=== PATIENT | male | born 1945 ===

== ENCOUNTER 2021-12-21 09:47 | Inpatient (IN) | payer MEDICARE ==
[~2021-12-21] VITALS: Ht 177.8 cm; Wt 62.8 kg
[2021-12-21 10:05] LABS: Calcium, Ionized (POC) 1.28 mmol/L (1.10-1.46); Chloride (POC) 104 mmol/L (98-108); Creatinine (POC) 0.9 mg/dL (0.6-1.0); Glucose (ISTAT POC) 118 mg/dL (70-99); Hemoglobin (POC) 15.3 g/dL (12.0-16.0); Sodium (POC) 137 mmol/L (135-148); Total CO2 (POC) 26 mmol/L (21-32)
[2021-12-21 10:16] LABS: BASOPHILS ABSOLUTE AUTO 0.11 K/mm3 (0.00-0.23); BASOPHILS PERCENT AUTO 1 % (0-2); EOSINOPHILS PERCENT AUTO 0 % (0-6); Hematocrit 44.4 % (33.0-51.0); Hemoglobin 14.5 g/dL (11.5-16.0); IMMATURE GRAN ABSOLUTE AUTO 0.08 K/mm3 (0.00-0.10); IMMATURE GRAN PERCENT AUTO 0 % (0-1); LYMPHOCYTES ABSOLUTE AUTO 0.44 K/mm3 (0.84-5.20); LYMPHOCYTES PERCENT AUTO 2 % (21-46); MONOCYTES ABSOLUTE AUTO 1.54 K/mm3 (0.16-1.47); MONOCYTES PERCENT AUTO 8 % (4-13); Mean Corpuscular HGB 29.8 pg (26.0-34.0); Mean Corpuscular HGB Conc 32.7 g/dL (31.5-36.5); Mean Corpuscular Volume 91 fL (80-100); Mean Platelet Volume 10.2 fL (9.1-12.4); NEUTROPHILS ABSOLUTE AUTO 16.76 K/mm3 (1.96-9.15); NEUTROPHILS PERCENT AUTO 89 % (41-73); Platelet Count 340 K/mm3 (150-400); RDW Coefficient Variation 16.1 % (11.7-14.2); RDW Standard Deviation 54.1 fL (35.1-46.3); Red Blood Cell Count 4.87 M/mm3 (3.80-5.20); White Blood Cell Count 18.93 K/mm3 (4.00-11.30)
[2021-12-21 10:48] LABS: Ethanol (Alcohol), Blood, Med <3 mg/dL
[2021-12-21 10:49] LABS: Alanine Aminotransfer (ALT/SGP 50 U/L (12-78); Albumin, Blood 3.8 g/dL (3.4-5.0); Alk Phos 109 U/L (50-136); Anion Gap 12 mmol/L (6-16); Aspartate Aminotrans (AST/SGOT 48 U/L (12-37); Bilirubin, Total 1.3 mg/dL (0.1-1.0); Blood Urea Nitrogen 26 mg/dL (8-24); Bun/Creatinine Ratio 33.2 (12.0-20.0); CO2, Blood 24 mmol/L (21-32); Calcium, Blood 10.4 mg/dL (8.5-10.1); Chloride, Blood 103 mmol/L (98-108); Creatinine, Blood 0.78 mg/dL (0.40-1.00); Globulin, Blood 3.9 g/dL (2.2-4.0); Glomerular Filtration Rate >60 (60-); Glucose, Blood 120 mg/dL (70-99); Potassium, Blood 4.9 mmol/L (3.5-5.5); Sodium, Blood 139 mmol/L (136-145); Total Protein, Blood 7.7 g/dL (6.4-8.2)
[2021-12-21 11:11] LABS: International Normalized Ratio 1.04; Prothrombin Time Results 10.9 Sec (9.7-11.5)
[2021-12-21 13:03] LABS: Source, Urine Straight Cath
[2021-12-21 13:14] LABS: Creatine Kinase MB 20.6 ng/mL (0.0-3.6); Creatine Kinase MB Index 2.4 (0.0-4.0)
[2021-12-21 13:18] LABS: Bilirubin, Urine Neg (Neg); Blood, Urine 5+ (Neg); Glucose Qualitative, Urine 2+ (Neg); Ketones, Urine 3+ (Neg); Leukocyte Esterase, Urine Neg (Neg); Nitrite, Urine Neg (Neg); Protein, Urine 2+ (Neg); Specific Gravity, Urine 1.015 (1.003-1.022); Urobilinogen, Urine NORM (Normal)
[2021-12-21 13:33] LABS: Appearance, Urine Clear (Clear); Color, Urine Pale Yellow (P-Yellow)
[2021-12-21 13:34] LABS: Bacteria Few /hpf; Squamous Epithelial Cells Few /hpf (Few); White Blood Cells, Urine 0-2 /hpf (0-5)
[2021-12-21 16:47] LABS: PCO2 Arterial 46.1 mmHg (35-45); PO2 Arterial 407 mmHg (80-100)
[2021-12-21 17:14] LABS: U Amphetamine Screen Not Detected; U Barbituate Screen Not Detected; U Benzodiazapine Screen Not Detected; U Buprenorphine Screen Not Detected; U Cannabinoids Screen DETECTED; U Cocaine Screen Not Detected; U Methadone Screen Not Detected; U Methamphetamine Screen Not Detected; U Opiates Screen DETECTED; U Oxycodone Screen Not Detected; U Phencyclidine Screen Not Detected; U Propoxyphene Screen Not Detected
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
--- NOTE | 2021-12-21 19:15 | NUR ---
ASSUMPTION OF CARE PT IS INTUBATED WITH VENT SETTINGS AC/VC+ 15/400/5/40%. PT HAS MODERATE AMOUNTS OF DARK BROWN/RED SECRETIONS FROM ETT, OGT, AND ORAL CAVITY. PT RECEIVING PROPOFOL 30MCG/KG/MIN AND NS 125/HR. KEPPRA STARTED BY DAY SHIFT RN. PUPILS ARE 3MM AND NONREACTIVE. BILAT SCLERA VERY EDEMATOUS. PT RESPONDS TO NAILBED PRESSURE WITH DECORTICATE POSTURING. TOES POINT UPWARD WITH BABINSKI REFLEX. HR 150S AND DECREASES TO 80S-90S. SBP 130S-150S. BRAUN DRAINING PALE YELLOW/CLEAR URINE TO GRAVITY. SEE SHIFT ASSESSMENT.
[2021-12-21 23:29] LABS: Magnesium, Blood 1.7 mg/dL (1.6-2.4)
[2021-12-21 23:31] LABS: Troponin I 1.6 ng/mL (0.000-0.040)
[2021-12-22] MEDS ORDERED: NORVASC5 MG PO (04:57)
[2021-12-22] MEDS ORDERED: ASPI81CH PO (05:00)
[2021-12-22] MEDS ORDERED: ALEN70 PO (05:00)
[2021-12-22] MEDS ORDERED: Lipitor20 MG PO (05:02)
[2021-12-22] MEDS ORDERED: LATA.005SO BOTHEYES (05:04)
--- NOTE | 2021-12-22 06:23 | NUR ---
SHIFT SUMMARY PT REMAINS INTUBATED WITH VENT SETTINGS AC/VC+ 15/400/5/30%. PT RECEIVING PROPOFOL 30MCG/KG/MIN. NGT REMAINS CONNECTED TO LOW INT SUCTION WITH SMALL AMOUNTS OF THICK RED DRAINAGE. ETT SECRETIONS REMAIN THICK/RED BUT HAVE DECREASED IN AMOUNT THROUGHOUT SHIFT. BRAUN REMAINS IN PLACE DRAINING PALE YELLOW/CLEAR URINE TO GRAVITY. SHIFT OUTPUT OF 900ML. RECORDS RECEIVED FROM [facility] REGARD[facility] H[facility]. [facility] STATES THEY [facility] NOT HAVE A POLST OR ADVANCED DIRECTIVE ON FILE. PER HISTORY, PT HAS TYPE 2 DIABETES. CBG CHECKED THIS AM, GLUCOSE 62. CALL PLACED TO DR PEREZ, RECEIVED ORDER FOR 1/2AMP D50 AND CHANGE FLUIDS TO D5 1/2NS AT 50ML/HR. AM LABS TO BE DRAWN AT 0700 ALONG WITH TROPONIN. CHEST XRAY DONE, ECHO TO BE DONE THIS AM. PT'S FACE REMAINS VERY SWOLLEN AND BRUISED. R SCLERA SWOLLEN AND YELLOW, L SCLERA VERY SWOLLEN AND RED. PUPILS ARE EQUAL, ROUND AND REACTIVE. HR HAS BEEN IN 80S. ONCE THIS SHIFT WITH REPOSITIONING PT'S HR INCREASED TO 150S-160S THEN DECREASED BACK TO 80S-90S. SBP 120S-140S. WILL REPORT TO ONCOMING RN.
[2021-12-22 07:23] LABS: Hematocrit 36.7 % (37.0-53.0); Hemoglobin 12.1 g/dL (13.5-17.5)
--- NOTE | 2021-12-22 07:30 | NUR ---
PT REMAINS INTUBATED. GIVEN SEDATION VACATION X 15 MIN. PT REMAINS UNRESPONSIVE. DECORTICATE POSTURING TO UPPER EXTREMITIES WITH NOXIOUS STIMULI. NO MOVEMENT OF LOWER EXTREMITIES NOTED. RR 30'S AND PT BEGAN COUGHING-PROPOFOL DRIP RESUMED @ 30 MCG/KG/MIN. BOTH EYES ARE BLACK AND SWOLLEN. SUTURES UNDER LEFT EYE AND TO UPPER LIP ARE C/D/I. MILD SCLERAL EDEMA TO RIGHT EYE, BUT PROFOUND SCLERAL EDEMA TO LEFT EYE. PUPILS ARE 3 MM AND SLUGGISH.ECG SHOWS SR. SBP 120-130'S. RIGHT LOWER EXTREMITY WITH 2+ EDEMA. FAINT DP/PT PULSES. BOTH LOWER EXTREMITIES ARE PINK AND WARM RIGHT GREAT TOE STILL BRUISED. LUNGS COARSE TO UPPER LOBES. ETT TO VENT"AC/VC+15, RR 20'S, TV400, PEEP 5, FIO2 30%-SATS>90%. ETT SUCTION PRODUCTIVE OF MODERATE AMOUNT OF THICK, OLD BLOODY SECRETIONS. NGT TO LIS WITH SCANT BROWN/RED DRAINAGE. NO ABDOMINAL DISTRESS NOTED. BRAUN TO BSD WITH SMALL AMOUNT OF YELLOW URINE TO BSD. RIGHT HIP WITH FOAM DRESSING THAT IS C/D/I. COCCYX/BUTTOCKS WITH MEPILEX/FOAM DRESSING TO PREVENT SKIN BREAKDOWN-C/D/I.
[2021-12-22 07:59] LABS: Alanine Aminotransfer (ALT/SGP 45 U/L (12-78); Albumin, Blood 2.4 g/dL (3.4-5.0); Albumin/Globulin Ratio 0.8 (0.8-1.8); Alk Phos 62 U/L (50-136); Anion Gap 7 mmol/L (6-16); Aspartate Aminotrans (AST/SGOT 79 U/L (12-37); Bilirubin, Total 0.8 mg/dL (0.1-1.0); Blood Urea Nitrogen 25 mg/dL (8-24); Bun/Creatinine Ratio 25.7 (12.0-20.0); CO2, Blood 25 mmol/L (21-32); CPK Creatine Kinase 1682 U/L (39-308); Calcium, Blood 8.5 mg/dL (8.5-10.1); Chloride, Blood 109 mmol/L (98-108); Creatinine, Blood 0.97 mg/dL (0.60-1.20); Globulin, Blood 3.2 g/dL (2.2-4.0); Glomerular Filtration Rate >60 (60-); Glucose, Blood 118 mg/dL (70-99); Potassium, Blood 4.2 mmol/L (3.5-5.5); Sodium, Blood 141 mmol/L (136-145)
[2021-12-22 08:03] LABS: Total Protein, Blood 5.6 g/dL (6.4-8.2)
--- NOTE | 2021-12-22 08:30 | NUR ---
DR. MACIAS AND HERE TO SEE PT. SEDATION ON STANDBY. PLAN FOR CT OF HEAD LATER TODAY.
--- NOTE | 2021-12-22 09:31 | NUR ---
RIGHT PUPIL 2 MM AND FIXED. NO SEDATION X 1 HOUR. PT WITH DECORTICATE POSTURING TO LEFT UPPER EXTREMITY MORE THAN THE RIGHT. NO CORNEAL REFLEX, NO GAG. +BABINSKI. DR. MACIAS NOTIFIED.
--- NOTE | 2021-12-22 11:30 | NUR ---
PROPOFOL HAS BEEN OFF SINCE 829. PT STILL NOT OPENING EYES OR FOLLOWING COMMANDS. PUPILS 2 MM AND SLUGGISH. DECORTICATE POSTURING NOTED TO LEFT UPPER EXTREMITY WITH PAINFUL STIMULI. MINIMAL GROSS MOVEMENT NOTED TO RIGHT UPPER EXTREMITY WITH PAINFUL STIMULI. NO MOVEMENT OF LOWER EXTREMITIES NOTED. +BABINSKI. VS WDL. SATS>90% ON FIO2 30%. ETT SUCTION PRODUCTIVE OF MODERATE AMOUNT OF THICK, OLD BLOODY SECRETIONS. PT SISTER THEO NOTIFIED OF PT ADMISSION(PT NEXT OF KIN.)
--- NOTE | 2021-12-22 14:30 | NUR ---
RIGHT FOREARM IV NOT PATENT-DC'D WITH CATHETER INTACT. NEW #18 G 10 CM EXTENEDED DWELL CATHETER PLACED. PT GRIMACING AND HR 150'S DURING PROCEDURE. MED WITH FENTANY 50 MCG IVP X 1-SEE EMAR. HR RETURNED TO 80-90'S. DR. MACIAS AWARE.
--- NOTE | 2021-12-22 16:00 | NUR ---
PT APPEARS TO GRIMACE WITH NOXIOUS STIMULI/ORAL CARE. HR 150'S WITH ETT SUCTIONING. PT TURNED HIS HEAD TOWARD THE VENTILATOR WITH SUCTIONING. PT REMAINS OFF SEDATION.STILL NOT FOLLOWING COMMANDS. TEMP 99.1. LUNGS COARSE TO UPPER LOBES. VENT CHANGED TO SPONTANEOUS MODE WITH PS 10/5, FIO2 30% RR 14-SATS>90% NO NOTED RESPIRATORY DISTRESS. ETT RETAPED THE ETT KINKING OFF/POSITIONAL-PER MAYUR RT.PT TO REMAIN ON SPONTANEOUS TOLERATED. OGTF VITAL HIGH PROTEIN INITIATED @ 25 CC/HR. BRAUN WITH MODERATE AMOUNT OF DARK, YELLOW URINE TO BSD. DR. LIND IN TO SEE PT BRIEFLY-UPDATED TO CURRENT VS AND STATUS. ORTHO TO FOLLOW PT FROM [facility] UNTIL HE IMPROVES NEUROLOGICALLY.
--- NOTE | 2021-12-22 18:40 | NUR ---
NO ACUTE NEURO CHANGES. PT HAS REMAINED OFF OF SEDATION THROUGH OUT THE DAY. PT STILL UNRESPONSIVE. PT GRIMACES TO NOXIOUS STIMULI AND HAS SOME GROSS MOVEMENT OF UPPER EXTREMITIES. NO MOVEMENT OF LOWER EXTREMITIES. PT REMAINS ON SPONTANEOUS MODE OF VENTILATION WITH PS 10-SATS>90% PT SISTER THEO UPDATED TO CURRENT STATUS AND PLAN OF CARE.
--- NOTE | 2021-12-22 19:00 | NUR ---
HR 150'S. PT OPENED RIGHT EYE TO VOICE AND SEEMED TO BE TRACKING. MED WITH FENTANYL 50 MCG IVP FOR PAIN. VENT CHANGED TO AC/VC+ 15, 450, PEEP 5,FIO2 30%-SATS>90% DESPITE MED WITH FENTANYL, PT STILL GRIMACING AND TACHYCARDIC-DR. AMCIAS PAGED. PROPOFOL DRIP RESUMED @ 30 MCG/KG/MIN. REPORT GIVEN TO JOHNATHAN AMBROCIO.
--- NOTE | 2021-12-22 19:15 | NUR ---
ASSUMPTION OF CARE PT REMAINS INTUBATED. PER REPORT, PT WAS ON SPONTANEOUS THROUGHOUT DAY BUT SWITCHED BACK TO AC/VC+ AT APPROX 1845 WITH SETTINGS AC/VC+ 15/450/5/30%. PROPOFOL WAS RESTARTED AT THE SAME TIME AND IS INFUSING AT 30MCG/KG/MIN. D5 1/2NS INFUSING AT 50ML/HR. VITAL HP INFUSING VIA OGT AT 25ML/HR WITH 30ML WATER FLUSH Q4, ZERO RESIDUALS AT THIS TIME AND BOWEL TONES ACTIVE. HR WAS IN 140S-150S WITH SBP 130S-150S, NOW HR IS 80S. BRAUN REMAINS IN PLACE DRAINING YELLOW URINE. PLAN FOR HEAD CT IN AM. SEE SHIFT ASSESSMENT.
[2021-12-23 03:29] LABS: BASOPHILS ABSOLUTE AUTO 0.05 K/mm3 (0.00-0.23); BASOPHILS PERCENT AUTO 0 % (0-2); EOSINOPHILS ABSOLUTE AUTO 0.03 K/mm3 (0.00-0.68); EOSINOPHILS PERCENT AUTO 0 % (0-6); Hematocrit 33.8 % (37.0-53.0); Hemoglobin 11.1 g/dL (13.5-17.5); IMMATURE GRAN ABSOLUTE AUTO 0.07 K/mm3 (0.00-0.10); IMMATURE GRAN PERCENT AUTO 1 % (0-1); LYMPHOCYTES ABSOLUTE AUTO 0.51 K/mm3 (0.84-5.20); LYMPHOCYTES PERCENT AUTO 4 % (21-46); MONOCYTES ABSOLUTE AUTO 0.69 K/mm3 (0.16-1.47); MONOCYTES PERCENT AUTO 5 % (4-13); Mean Corpuscular HGB 29.8 pg (26.0-34.0); Mean Corpuscular HGB Conc 32.8 g/dL (31.5-36.5); Mean Corpuscular Volume 91 fL (80-100); Mean Platelet Volume 10.6 fL (9.1-12.4); NEUTROPHILS ABSOLUTE AUTO 13.21 K/mm3 (1.96-9.15); NEUTROPHILS PERCENT AUTO 91 % (41-73); Platelet Count 229 K/mm3 (150-400); RDW Coefficient Variation 16.4 % (11.7-14.2); RDW Standard Deviation 54.8 fL (35.1-46.3); Red Blood Cell Count 3.73 M/mm3 (4.30-5.90); White Blood Cell Count 14.56 K/mm3 (4.00-11.30)
--- NOTE | 2021-12-23 03:30 | NUR ---
SPONTANEOUS PROPOFOL ON STANDBY AT 031. PT SWITCHED FROM AC/VC+ TO SPONTANEOUS AT 0330 BY RT. RR 13-18, PEEP 5, FIO2 30%, AND TIDAL VOLUMES BETWEEN 430S-750S. PT TOLERATING WELL AT THIS TIME, NO SIGNS OF DISTRESS.
[2021-12-23 04:22] LABS: Alanine Aminotransfer (ALT/SGP 43 U/L (12-78); Albumin, Blood 2.2 g/dL (3.4-5.0); Albumin/Globulin Ratio 0.7 (0.8-1.8); Alk Phos 62 U/L (50-136); Anion Gap 3 mmol/L (6-16); Aspartate Aminotrans (AST/SGOT 53 U/L (12-37); Bilirubin, Total 0.6 mg/dL (0.1-1.0); Blood Urea Nitrogen 25 mg/dL (8-24); Bun/Creatinine Ratio 29.7 (12.0-20.0); CO2, Blood 27 mmol/L (21-32); Calcium, Blood 8.7 mg/dL (8.5-10.1); Chloride, Blood 111 mmol/L (98-108); Creatinine, Blood 0.84 mg/dL (0.60-1.20); Globulin, Blood 3.3 g/dL (2.2-4.0); Glomerular Filtration Rate >60 (60-); Glucose, Blood 187 mg/dL (70-99); Magnesium, Blood 2.2 mg/dL (1.6-2.4); Phosphorus, Blood 2.1 mg/dL (2.5-4.9); Potassium, Blood 4.2 mmol/L (3.5-5.5); Sodium, Blood 141 mmol/L (136-145); Total Protein, Blood 5.5 g/dL (6.4-8.2)
[2021-12-23 04:25] LABS: Troponin I 0.741 ng/mL (0.000-0.040)
--- NOTE | 2021-12-23 05:43 | NUR ---
SHIFT SUMMARY PT REMAINS INTUBATED WITH VENT SETTINGS SPONTANEOUS, PEEP 5, FIO2 30%. PT HAS BEEN ON SPONTANEOUS SINCE 329. PT TOLERATING WELL, RR 11-18 WITH TIDAL VOLUMES 400S-700S. PROPOFOL HAS BEEN OFF SINCE 314. PT CURRENTLY RECEIVING D5 1/2NS AT 50ML/HR. PT OPENED R EYE DURING BEDBATH AND DURING REPOSITIONING AT 0530. PT DID NOT TRACK MOVEMENTS OR FOLLOW COMMANDS. VHP TUBE FEEDING INFUSING AT GOAL RATE SINCE MIDNIGHT WITH MINIMAL RESIDUALS. BRAUN REMAINS IN PLACE DRAINING DARK YELLOW URINE TO GRAVITY. SHIFT OUTPUT OF 650ML. PT HAD THREE EPISODES OF RAPID HEARTRATE THAT SUDDENLY INCREASES TO 140S-150S LASTS A SHORT PERIOD AND THEN SLOWS BACK TO 80S-90S. THIS OCCURRED AT THE BEGINNING OF SHIFT, APPROX 0200, AND 0520. PT TENSE AND/OR GRIMACING DURING THESE EPISODES, MEDICATED WITH FENTANYL PER EMAR. SBP REMAINS 130S-160S. PLAN FOR HEAD CT THIS AM. WILL REPORT TO ONCOMING RN.
--- NOTE | 2021-12-23 07:15 | NUR ---
Assumed care of pt at 0700. Bedside report received from Doreen MANN. Pt on ventilator, via 7.5 cm ETT, spontaneous mode PS 5/5 and 30% FiO2. RR 18-22. SpO2 90% or greater. Tidal volumes 400-450 mL. Pt is not receiving sedation. Does not open eyes. Attempts to withdraw from painful stimulus. Cough and gag intact. PERRL, 3 mm. HR alternates between SVT rate 140-145 and SR with PACs 65-85. BP stable. Pt has recently received one dose of labetalol. Will continue to closely monitor.
--- NOTE | 2021-12-23 08:02 | NUR ---
Dr Gomes in to see patient. Plan to give 2.5 mg metoprolol IV push x 2 for heart rate
--- NOTE | 2021-12-23 11:32 | NUR ---
Discussed blood sugar of [address] Gomes. Plan to stop D5 1/2 NS.
--- NOTE | 2021-12-23 14:49 | NUR ---
Pt to imaging and back for head CT. Pt tolerated well. Remained on spontaneous mode. Pt's HR more stable. SVT stopped when pt was given pain meds. He has only had one episode of SVT since last dose of fentanyl and it was while he was being repositioned.
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
--- NOTE | 2021-12-23 21:15 | NUR ---
ASSUMED CARE: PT WITH SAS OF 3 WITH NO SEDATION ALL DAY. GIRISH AT 4MM BILAT. PT GRIMACES TO PAIN WHEN NAIL BEDS PUSHED ON. TEMP 101.6; TYLENOL GIVEN. LS CLEAR DIMINISHED BASED WITH INSPIRATORY WHEEZE ON CRISTINO. ETT 7.5 24 @ LIP WITH VENT SETTINGS SPONTANEOUS WITH PS5, PEEP 5 AND FIO2 30%. RR 20 AND PEAK PRESSURES 10. THINK FOAMY BEARDEN SECRETIONS SX'D. HEART SOUNDS S1 AND S2 AUSCULTATED BUT A LITTLE DISTANT WITH MONITOR SHOWING SR WITH HR 74. SKIN WITH MULTIPLE ECCHYMOTIC AREAS. BILAT ECCHYMOSIS AROUND EYES WITH LACERATION UNDER LEFT EYE WITH SUTURES IN PLACE. R HIP WITH DRESSING IN PLACE; ABRASION UNDER DRESSING AND WEEPING. PG 18G 10CM YULIYA AND FLUSHED. 20G LF WITH NS RUNNING AT 10CC/HR. ABD R/S WITH HYPER BT X4. TUBE FEDDING VITAL HP RUNNING AT 50CC/HR WITH 30CC FLUSH Q 4HRS. RESIDUALS 5CC AND REFED. BRAUN DRAINING DARK YELLOW URINE.
--- NOTE | 2021-12-24 | NUR ---
REASSES: COMPLETE BED BATH DONE AND LINENS CHANGED. DRESSING ON R HIP CHANGED. COCCYX DRESSING REMOVED AND WOUND ASSESS; NO CHANGES ROM PICTURE. TEMP 99.6.VSS
--- NOTE | 2021-12-24 01:28 | NUR ---
WENT IN TO TURN PT, HE WAS SLIGHTLY SQUIMMING IN THE BED. ASKED HIM TO OPEN HIS EYES AND HE DID. ASKED HIM TO SQUEEZE MY HANDS, AND HE DID. ASKED IF HE WAS IN PAIN, AND HE NODDED NO.
[2021-12-24 04:52] LABS: BASOPHILS ABSOLUTE AUTO 0.04 K/mm3 (0.00-0.23); BASOPHILS PERCENT AUTO 0 % (0-2); EOSINOPHILS ABSOLUTE AUTO 0.07 K/mm3 (0.00-0.68); EOSINOPHILS PERCENT AUTO 1 % (0-6); Hematocrit 34.2 % (37.0-53.0); IMMATURE GRAN ABSOLUTE AUTO 0.09 K/mm3 (0.00-0.10); IMMATURE GRAN PERCENT AUTO 1 % (0-1); LYMPHOCYTES ABSOLUTE AUTO 0.35 K/mm3 (0.84-5.20); LYMPHOCYTES PERCENT AUTO 3 % (21-46); MONOCYTES ABSOLUTE AUTO 0.63 K/mm3 (0.16-1.47); MONOCYTES PERCENT AUTO 6 % (4-13); Mean Corpuscular HGB 29.5 pg (26.0-34.0); Mean Corpuscular HGB Conc 32.2 g/dL (31.5-36.5); Mean Corpuscular Volume 92 fL (80-100); Mean Platelet Volume 10.9 fL (9.1-12.4); NEUTROPHILS ABSOLUTE AUTO 9.47 K/mm3 (1.96-9.15); NEUTROPHILS PERCENT AUTO 89 % (41-73); Platelet Count 207 K/mm3 (150-400); RDW Coefficient Variation 16.4 % (11.7-14.2); Red Blood Cell Count 3.73 M/mm3 (4.30-5.90); White Blood Cell Count 10.65 K/mm3 (4.00-11.30)
[2021-12-24 05:42] LABS: Alanine Aminotransfer (ALT/SGP 44 U/L (12-78); Albumin/Globulin Ratio 0.6 (0.8-1.8); Alk Phos 74 U/L (50-136); Anion Gap 5 mmol/L (6-16); Aspartate Aminotrans (AST/SGOT 34 U/L (12-37); Bilirubin, Total 0.6 mg/dL (0.1-1.0); Blood Urea Nitrogen 29 mg/dL (8-24); Bun/Creatinine Ratio 34.5 (12.0-20.0); CO2, Blood 26 mmol/L (21-32); Calcium, Blood 8.7 mg/dL (8.5-10.1); Chloride, Blood 110 mmol/L (98-108); Creatinine, Blood 0.84 mg/dL (0.60-1.20); Globulin, Blood 3.5 g/dL (2.2-4.0); Glomerular Filtration Rate >60 (60-); Glucose, Blood 171 mg/dL (70-99); Potassium, Blood 4.1 mmol/L (3.5-5.5); Sodium, Blood 141 mmol/L (136-145); Total Protein, Blood 5.5 g/dL (6.4-8.2)
--- NOTE | 2021-12-24 07:26 | NUR ---
TOOK OVER CARE OF PT AT 0700 12/24/21. PT ON VENTILATOR WITH SETTINGS OF SPONT PS 5/5 30%. HYPERTENSIVE AT THIS TIME WITH SYSTOLIC 170'S, PREVIOUS NURSE STATES PT HAD JUST RECIEVED ORAL CARE FROM RT AND WAS GIVEN AN ANTIHYPERTENSIVE. PT DOES NOT CURRENTLY HAVE ANY PRESSORS OR SEDATION RUNNING ON PUMPS. APPEARS TO BE MINIMALLY RESPONSIVE TO STIMULI.
--- NOTE | 2021-12-24 07:35 | NUR ---
TOOK OVER CARE OF PT AT 0700 12/24/21. PT ON VENTILATOR WITH SETTINGS OF SPONT PS 5/5 30%. HYPERTENSIVE AT THIS TIME WITH SYSTOLIC 170'S, PREVIOUS NURSE STATES PT HAD JUST RECIEVED SUCTIONING FROM RT AND WAS GIVEN AN ANTIHYPERTENSIVE. PT DOES NOT CURRENTLY HAVE ANY PRESSORS OR SEDATION RUNNING ON PUMPS. APPEARS TO BE MINIMALLY RESPONSIVE TO STIMULI.
--- NOTE | 2021-12-24 09:00 | NUR ---
DR. MACIAS NOTIFIED OF UNEQUAL PUPILS.
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
--- NOTE | 2021-12-24 18:12 | NUR ---
PT ON AC/VC RATE OF 15 450ML 5 OF PEEP 30% FiO2. 20 OF PROPOFOL. LEFT PUPIL STILL SMALLER THAN RIGHT AND SLUGGISH. STRONGER PAIN RESPONSES FROM RIGHT SIDE STILL.
[2021-12-25 04:05] LABS: Hematocrit 33.7 % (37.0-53.0); Hemoglobin 10.9 g/dL (13.5-17.5); Mean Corpuscular HGB 29.7 pg (26.0-34.0); Mean Corpuscular HGB Conc 32.3 g/dL (31.5-36.5); Mean Corpuscular Volume 92 fL (80-100); Mean Platelet Volume 11.2 fL (9.1-12.4); NRBC ABSOLUTE 0.02 K/mm3 (0.00-0.02); NRBC Auto 0.2 /100 WBC (0.0-0.2); Platelet Count 227 K/mm3 (150-400); RDW Coefficient Variation 16.6 % (11.7-14.2); RDW Standard Deviation 56.2 fL (35.1-46.3); Red Blood Cell Count 3.67 M/mm3 (4.30-5.90); White Blood Cell Count 9.14 K/mm3 (4.00-11.30)
[2021-12-25 04:23] LABS: Alanine Aminotransfer (ALT/SGP 37 U/L (12-78); Albumin, Blood 1.9 g/dL (3.4-5.0); Albumin/Globulin Ratio 0.6 (0.8-1.8); Alk Phos 71 U/L (50-136); Anion Gap 4 mmol/L (6-16); Aspartate Aminotrans (AST/SGOT 25 U/L (12-37); Bilirubin, Total 0.4 mg/dL (0.1-1.0); Blood Urea Nitrogen 31 mg/dL (8-24); Bun/Creatinine Ratio 36.4 (12.0-20.0); CO2, Blood 28 mmol/L (21-32); Calcium, Blood 9.3 mg/dL (8.5-10.1); Chloride, Blood 111 mmol/L (98-108); Creatinine, Blood 0.85 mg/dL (0.60-1.20); Globulin, Blood 3.3 g/dL (2.2-4.0); Glomerular Filtration Rate >60 (60-); Glucose, Blood 165 mg/dL (70-99); Phosphorus, Blood 2.5 mg/dL (2.5-4.9); Potassium, Blood 4.3 mmol/L (3.5-5.5); Sodium, Blood 143 mmol/L (136-145); Total Protein, Blood 5.2 g/dL (6.4-8.2)
[2021-12-25 04:32] LABS: BAND PERCENT MAN 16 % (0-8); BASOPHILS ABSOLUTE MAN 0.09 K/mm3 (0.00-0.23); BASOPHILS PERCENT MAN 1 % (0-2); EOSINOPHILS ABSOLUTE MAN 0.09 K/mm3 (0.00-0.68); EOSINOPHILS PERCENT MAN 1 % (0-6); LYMPHOCYTES ABSOLUTE MAN 0.45 K/mm3 (0.84-5.20); LYMPHOCYTES PERCENT MAN 5 % (21-46); MONOCYTES ABSOLUTE MAN 0.36 K/mm3 (0.16-1.47); MONOCYTES PERCENT MAN 4 % (4-13); NEUTROPHILS ABSOLUTE MAN 8.13 K/mm3 (1.96-9.15); SEG NEUTROPHILS PERCENT MAN 73 % (41-73); TOTAL CELLS COUNTED 100
--- NOTE | 2021-12-25 06:14 | NUR ---
NO SIGNIFICANT CHANGES OVERNIGHT. PT GRIMACES AND HAS INCREASED RR AND BP FOLLOWING REPOSITIONING, RESPONDS WELL TO PAIN MEDICATION. PUPILS 2MM, L SLOWER TO RESPOND TO LIGHT THAN THE R. OCC PRODUCTIVE COUGH, DRAWS ARMS IN WITH COUGHING AND PAIN. DRESSING ON R HIP REPLACED DUE TO WEEPING, NO CHANGE IN SACRAL REDNESS OR HEELS. WILL CONTINUE TO MONITOR AND REPORT TO ONCOMING SHIFT.
--- NOTE | 2021-12-25 07:21 | NUR ---
TOOK OVER CARE OF PT AT 0710 12/25/21. PT IS RESTING ON VENTILATOR SET ON AC/VC, RATE OF 15, 450ML, PEEP OF 5 AND 30% FiO2. REPORTING RN STATED HYPERTENSION ISSUES ONLY WHEN AGITATING PT, OTHERWISE STABLE AT THIS TIME.
--- NOTE | 2021-12-25 10:41 | NUR ---
PRN MILK OF MAG AND BISACODYL SUPPOSITORY GIVEN
--- NOTE | 2021-12-25 17:54 | NUR ---
PT HAVING REPEAT RUNS OF SVT. PROVIDER AT BEDSIDE. PRN'S PUSHED WITH NO RESULT. HR UP TO 170'S AT TIMES
--- NOTE | 2021-12-25 18:03 | NUR ---
SUMMARY PROPOFOL HAS BEEN OFF SINCE 0700, INTERMITTENT PRN FENTANYL GIVEN FOR PAIN CONTROL. NEURO: PTS PUPILS ARE BRISK AND EQUAL. ALL EXTREMETIES FOLLOWING COMMANDS WEAKLY. PT ABLE TO WIGGLE TOES AND SLIGHT MOVEMENT OF THUMBS. PT IS STRONGER ON THE RIGHT SIDE THAN THE LEFT. EYES OPEN MORE EASILY THROUGHOUT THE SHIFT AND PT BEGINNING TO NOD TO QUESTIONS. CARDIAC: INTERMITTENT EPISODES OF SVT, UP TO 174 BPM. PAC'S AND MULTIFOCAL PVC'S AFTER VAGAL MANEUVERS. ESMOLOL DRIP STARTED AT 50. RESPIRATORY; PT WAS BREATHING ABOVE THE VENT THROUGHOUT THE DAY. PT HAD COPIOUS THICK YELLOW SECRETIONS EVEN WITH Q2 ORAL CARE/SUCTIONING. SPUTUM SAMPLE SENT. PT PLACED ON ASSIST CONTROL 15/450/5/30%. THICK SINUS DRAINAGE NOTED. PT CONTINUED TO BE HYPERTENSIVE THROUGHOUT THE DAY. PO CCB'S AND BB'S ADDED TO REGIMEN ALONG WITH ALL AVAILABLE ANTIHYPERTENSIVE PRN IVP'S GIVEN. PAIN MANAGEMENT TRIED WELL. TMAX 100.5 ORAL
[2021-12-25 18:33] LABS: Anion Gap 5 mmol/L (6-16); Blood Urea Nitrogen 31 mg/dL (8-24); Bun/Creatinine Ratio 40.2 (12.0-20.0); CO2, Blood 27 mmol/L (21-32); Calcium, Blood 9.2 mg/dL (8.5-10.1); Chloride, Blood 110 mmol/L (98-108); Creatinine, Blood 0.77 mg/dL (0.60-1.20); Glomerular Filtration Rate >60 (60-); Glucose, Blood 188 mg/dL (70-99); Phosphorus, Blood 3.2 mg/dL (2.5-4.9); Potassium, Blood 4.4 mmol/L (3.5-5.5); Sodium, Blood 142 mmol/L (136-145)
--- NOTE | 2021-12-25 19:19 | NUR ---
Patient remains with elevated HR, currently 130s. BP stable. Esmolol now at 200 mcg/kg/min. Medicated with ativan due to concern for alcohol withdrawal. Discussed pt's response to esmolol and provider clarified to give evening dose of metoprolol and plan to manage pt's heart rate by medicating pain.
--- NOTE | 2021-12-25 20:00 | NUR ---
ASSUMED CARE. RESPONDS TO VERBAl STIMULI, ABLE TO OPEN EYES, ANSWER WITH TURNING HIS HEAD. BUT DOES NOT DRAG OUT MAN WHEN ASKED. DOES BITE DOWN ON SUCTION. LUNG SOUNDS CLEAR WITH FINE CRACKLES IN THE BASES. VENT: 15/450/5/30%. TOLERATING IT WELL. DR. LADD PRESENT R/T SVT, ST ON MONITOR. WILL HAVE NEW ORDERS. BRAUN CATH PATENT AND DRAINING. ESMOLOL CURRENTLY INFUSING. TF RUNNING AT 45CC/HR. WILL ASSESS AND PROVIDE TREATMENT PER ORDERS.
[2021-12-26 04:27] LABS: BASOPHILS ABSOLUTE AUTO 0.05 K/mm3 (0.00-0.23); BASOPHILS PERCENT AUTO 1 % (0-2); EOSINOPHILS PERCENT AUTO 1 % (0-6); Hematocrit 33.4 % (37.0-53.0); Hemoglobin 11.1 g/dL (13.5-17.5); IMMATURE GRAN ABSOLUTE AUTO 0.08 K/mm3 (0.00-0.10); IMMATURE GRAN PERCENT AUTO 1 % (0-1); LYMPHOCYTES ABSOLUTE AUTO 0.55 K/mm3 (0.84-5.20); LYMPHOCYTES PERCENT AUTO 6 % (21-46); MONOCYTES ABSOLUTE AUTO 0.77 K/mm3 (0.16-1.47); MONOCYTES PERCENT AUTO 8 % (4-13); Mean Corpuscular HGB 29.8 pg (26.0-34.0); Mean Corpuscular HGB Conc 33.2 g/dL (31.5-36.5); Mean Corpuscular Volume 90 fL (80-100); Mean Platelet Volume 10.9 fL (9.1-12.4); NEUTROPHILS ABSOLUTE AUTO 8.32 K/mm3 (1.96-9.15); NEUTROPHILS PERCENT AUTO 84 % (41-73); Platelet Count 239 K/mm3 (150-400); RDW Coefficient Variation 16.5 % (11.7-14.2); RDW Standard Deviation 54.2 fL (35.1-46.3); Red Blood Cell Count 3.72 M/mm3 (4.30-5.90); White Blood Cell Count 9.87 K/mm3 (4.00-11.30)
[2021-12-26 05:24] LABS: Albumin, Blood 1.7 g/dL (3.4-5.0); Anion Gap 5 mmol/L (6-16); Blood Urea Nitrogen 36 mg/dL (8-24); CO2, Blood 27 mmol/L (21-32); Chloride, Blood 111 mmol/L (98-108); Creatinine, Blood 0.84 mg/dL (0.60-1.20); Glomerular Filtration Rate >60 (60-); Glucose, Blood 221 mg/dL (70-99); Magnesium, Blood 1.9 mg/dL (1.6-2.4); Phosphorus, Blood 2.6 mg/dL (2.5-4.9); Potassium, Blood 4.4 mmol/L (3.5-5.5); Sodium, Blood 143 mmol/L (136-145)
--- NOTE | 2021-12-26 06:27 | NUR ---
SHIFT SUMMARY: INTUBATED. VENT SETTINGS NO CHANGE 15/450/5/30%. LS CLEAR WITH FINE CRACKLES IN THE BASES. SUCTION: THICK YELLOW SPUTUM. OPENS EYES TO VERBAL STIMULI, WILL SHAKE HEAD BACK AND FORTH, COUGHS. DID NOT ETCHER HAND FOR ME BUT WILL MOVE FINGERS SLIGHTLY. SVT/ST UP TO 140'S. CARDIZEM DRIP STARTED AT 5, WAS INCREASED TO 10 BUT IS NOW BACK AT 5, MAINTAINING 70'S. DOES TEND TO GO BACK TO ST WHEN SUCTIONING OR MOVING THE PATIENT BUT WILL RETURN TO NORMAL ON OWN. FEBRILE HIGHEST 99.9. NO BM THIS SHIFT. NO CHANGE TO SKIN, RIGHT HIP ABRASION OPEN TO AIR. DRESSINGS TO BILATERAL HEALS AND BOTTOM INTAKE. FENTANYL USED FOR PAIN MANAGMENT AND HR CONTROL. TROPONIN THIS AM ELEVATED 1.44.CHARGE INFORMED. EXPECTED ELEVATION DUE TO SVT YESTERDAY. WILL REPORT TO DAYSHIFT.
--- NOTE | 2021-12-26 08:47 | NUR ---
TOOK OVER CARE OF PT AT 0700 12/26/21. PT WAS ON VC/AC 5/450/5/30%. PT AWAKE AND RESPONDING TP COMMANDS ON ALL EXTREMETIES. WEAN TRIAL STARTED AT 0830 AND PATIENT PLACED ON PRESSURE SUPPORT 07/02.
--- NOTE | 2021-12-26 17:07 | NUR ---
SUMMARY PSYCH: PT IS LETHARGIC BUT INTERACTIVE WITH FLAT EFFECT. SKIN: RT HIP ABRASION HEALING, SKIN BUDS PRESENT, CURRENTLY WILBER WITH TRIPLE ABX OINTMENT APPLIED THROUGHOUT SHIT, SUTURES BELOW LEFT EYE AND ON UPPER LIPS ARE INTACT AND SKIN APPROXIMATED. GI/: PT HAS PIVOT 1.2 RUNNING AT 45ML/HR AND IS TOLERATING >5ML RESIDUALS. LAST BM WAS ON 12/25. UNRINE OUTPUT HAS BEEN 100ML/HR+. IF EXTUBATED TOMORROW, WILL BE UNABLE TO PLACE DOBHOFF FOR FEEDINGS AND MEDS D/T NASAL FX'S. RESPIRATORY: PT WAS PLACED ON A WEAN TRIAL TODAY TO ASSESS FOR POSSIBLE EXTUBATION IN THE MORNING. CONCERN FOR EXCESSIVE SECRETIONS- NIGHT RN TO MONITOR AND REPORT IN THE MORNING. SECRETIONS HAVE THINNED OUT AND LIGHTENED IN COLOR FROM THICK BEARDEN PREVIOUSLY. PT WAS SATTING 90-91% SO HE WAS PLACED ON 40% FiO2, PRESSURE SUPPORT 8/5. SPUTUM CULTURE FROM 12/25 SHOWED NO ORGANISM GROWTH. LUNGS CLEAR WITH DIMINISHED BASES. NEURO: PT OPENS EYES TO VOICE, ALTHOUGH INTERMITTENTLY SLOW TO RESPOND AND LETHARGIC. PT IS ABLE TO FOLLOW COMMANDS ON ALL EXTREMETIES, SLIGHTLY WEAKER ON LEFT BUT IMPROVING FROM YESTERDAY. PT WAS ABLE TO LIFT FORARMS AND LIFT THUMBS ON COMMAND TODAY, ALTHOUGH VERY BRIEF. PT RIGHT PUPIL WAS BRISK, WHILE THE RIGHT PUPIL WAS SLUGGISH. PROVIDER AWARE. CARDIAC: PT HAS BEEN ON CARDIZEN DRIP SINCE LAST NIGHT. CURRENTLY RUNNING AT 5. PT HAS ONE BRIEF EPISODE OF SVT UP TO 140'S BUT RESOLVED ON ITS OWN. PT CONTINUES TO BE INTERMITTENTLY HYPERTENSIVE, PRN VASOTEC AND HYDRALIZINE GIVEN. PT HAS ALSO BECOME HYPOTENSIVE WHILE TURNED HARD ONTO HIS RIGHT SIDE WITH A MAP IN TO 50'S AND DIASTOLIC PRESSURES IN THE 30'S. PT BP STABILIZED AFTER A FEW MINUTES WITH NO INTERVENTION. PT HAS BEEN BREATHING 25-30'S/MIN. HR IN THE 90'S, ETCO2 HAS BEEN RANGING 24-30, TMAX WAS 102.1 WELL. GROWTH. SINUS DRAINAGE ALSO NOTED.
--- NOTE | 2021-12-26 17:33 | NUR ---
SUMMARY PSYCH: PT IS LETHARGIC BUT INTERACTIVE WITH FLAT EFFECT. SKIN: RT HIP ABRASION HEALING, SKIN BUDS PRESENT, CURRENTLY WILBER WITH TRIPLE ABX OINTMENT APPLIED THROUGHOUT SHIFT, SUTURES BELOW LEFT EYE AND ON UPPER LIPS ARE INTACT AND SKIN APPROXIMATED. GI/: PT HAS PIVOT 1.2 RUNNING AT 45ML/HR AND IS TOLERATING >5ML RESIDUALS. LAST BM WAS ON 12/25. UNRINE OUTPUT HAS BEEN 100ML/HR+. IF EXTUBATED TOMORROW, WILL BE UNABLE TO PLACE DOBHOFF FOR FEEDINGS AND MEDS D/T NASAL FX'S. RESPIRATORY: PT WAS PLACED ON A WEAN TRIAL TODAY TO ASSESS FOR POSSIBLE EXTUBATION IN THE MORNING. CONCERN FOR EXCESSIVE SECRETIONS- NIGHT RN TO MONITOR AND REPORT IN THE MORNING. SECRETIONS HAVE THINNED OUT AND LIGHTENED IN COLOR FROM THICK BEARDEN PREVIOUSLY. PT WAS SATTING 90-91% SO HE WAS PLACED ON 40% FiO2, PRESSURE SUPPORT 8/. SPUTUM CULTURE FROM 12/25 SHOWED NO ORGANISM GROWTH. LUNGS CLEAR WITH DIMINISHED BASES. NEURO: PT OPENS EYES TO VOICE, ALTHOUGH INTERMITTENTLY SLOW TO RESPOND AND LETHARGIC. PT IS ABLE TO FOLLOW COMMANDS ON ALL EXTREMETIES, SLIGHTLY WEAKER ON LEFT BUT IMPROVING FROM YESTERDAY. PT WAS ABLE TO LIFT FORARMS AND LIFT THUMBS ON COMMAND TODAY, ALTHOUGH VERY BRIEF. PT RIGHT PUPIL WAS BRISK, WHILE THE LEFT PUPIL WAS SLUGGISH. PROVIDER AWARE. CARDIAC: PT HAS BEEN ON CARDIZEN DRIP SINCE LAST NIGHT. CURRENTLY RUNNING AT 5. PT HAS ONE BRIEF EPISODE OF SVT UP TO 140'S BUT RESOLVED ON ITS OWN. PT CONTINUES TO BE INTERMITTENTLY HYPERTENSIVE, PRN VASOTEC AND HYDRALIZINE GIVEN. PT HAS ALSO BECOME HYPOTENSIVE WHILE TURNED HARD ONTO HIS RIGHT SIDE WITH A MAP IN TO 50'S AND DIASTOLIC PRESSURES IN THE 30'S. PT BP STABILIZED AFTER A FEW MINUTES WITH NO INTERVENTION. PT HAS BEEN BREATHING 25-30'S/MIN. HR IN THE 90'S, ETCO2 HAS BEEN RANGING 24-30, TMAX WAS 102.1F WELL.
--- NOTE | 2021-12-26 18:13 | NUR ---
BLOOD AND URINE CULTURES DRAWN D/T TMAX OF 102.1F
[2021-12-26 18:38] LABS: Source, Urine Foley catheter
[2021-12-26 18:46] LABS: Bilirubin, Urine Neg (Neg); Blood, Urine 1+ (Neg); Glucose Qualitative, Urine 3+ (Neg); Ketones, Urine Neg (Neg); Leukocyte Esterase, Urine Neg (Neg); Nitrite, Urine Neg (Neg); Protein, Urine 2+ (Neg); Urobilinogen, Urine NORM (Normal)
[2021-12-26 18:55] LABS: Appearance, Urine Clear (Clear); Color, Urine Pale Yellow (P-Yellow)
[2021-12-26 18:56] LABS: Bacteria Few /hpf; Mucus Light (0-Heavy); Squamous Epithelial Cells Few /hpf (Few); White Blood Cells, Urine 0-2 /hpf (0-5)
--- NOTE | 2021-12-26 20:00 | NUR ---
ASSUMED CARE. INTUBATED ON SPONTANOUS, TOLERATING 40% AT THIS TIME. SECREATIONS SMALL, THIN, CLEAR. ORAL CARE PERFORMED, NOTED THERE IS SOME INDENTION ON ORAL CAVITY FROM ETT TUBE. REPOSITIONED. DRY BLOOD IN NASAL CAVITY, NASAL SPRAY ADMINISTERED. ABLE TO ANSWER QUESTIONS WITH HEAD NOD. DENIES PAIN, EXCEPT WHEN HE IS MOVED THEN HE WILL GRIMACE, BUT STILL SHAKES HEAD NO WHEN ASKED. BRUISES AND ABRASIONS ARE HEALING. VITALS HOLDING. WILL CONTINUE TO MONITOR.
[2021-12-27 03:37] LABS: BASOPHILS ABSOLUTE AUTO 0.03 K/mm3 (0.00-0.23); BASOPHILS PERCENT AUTO 0 % (0-2); EOSINOPHILS ABSOLUTE AUTO 0.16 K/mm3 (0.00-0.68); EOSINOPHILS PERCENT AUTO 2 % (0-6); Hematocrit 32.4 % (37.0-53.0); Hemoglobin 10.4 g/dL (13.5-17.5); IMMATURE GRAN ABSOLUTE AUTO 0.17 K/mm3 (0.00-0.10); IMMATURE GRAN PERCENT AUTO 2 % (0-1); LYMPHOCYTES ABSOLUTE AUTO 0.67 K/mm3 (0.84-5.20); LYMPHOCYTES PERCENT AUTO 7 % (21-46); MONOCYTES ABSOLUTE AUTO 0.88 K/mm3 (0.16-1.47); MONOCYTES PERCENT AUTO 9 % (4-13); Mean Corpuscular HGB Conc 32.1 g/dL (31.5-36.5); Mean Corpuscular Volume 90 fL (80-100); Mean Platelet Volume 11.8 fL (9.1-12.4); NEUTROPHILS ABSOLUTE AUTO 7.64 K/mm3 (1.96-9.15); NEUTROPHILS PERCENT AUTO 80 % (41-73); Platelet Count 255 K/mm3 (150-400); RDW Coefficient Variation 16.7 % (11.7-14.2); RDW Standard Deviation 55.8 fL (35.1-46.3); Red Blood Cell Count 3.59 M/mm3 (4.30-5.90); White Blood Cell Count 9.55 K/mm3 (4.00-11.30)
[2021-12-27 04:13] LABS: Alanine Aminotransfer (ALT/SGP 41 U/L (12-78); Albumin, Blood 1.6 g/dL (3.4-5.0); Albumin/Globulin Ratio 0.4 (0.8-1.8); Alk Phos 81 U/L (50-136); Anion Gap 2 mmol/L (6-16); Aspartate Aminotrans (AST/SGOT 36 U/L (12-37); Bilirubin, Total 0.4 mg/dL (0.1-1.0); Blood Urea Nitrogen 40 mg/dL (8-24); Bun/Creatinine Ratio 45.7 (12.0-20.0); CO2, Blood 29 mmol/L (21-32); Chloride, Blood 113 mmol/L (98-108); Creatinine, Blood 0.88 mg/dL (0.60-1.20); Globulin, Blood 3.6 g/dL (2.2-4.0); Glomerular Filtration Rate >60 (60-); Glucose, Blood 196 mg/dL (70-99); Phosphorus, Blood 2.7 mg/dL (2.5-4.9); Potassium, Blood 4.3 mmol/L (3.5-5.5); Sodium, Blood 144 mmol/L (136-145); Total Protein, Blood 5.2 g/dL (6.4-8.2)
--- NOTE | 2021-12-27 06:12 | NUR ---
SHIFT SUMMARY: CONTINUES ON SPONTANOUS VENT WITH O2 AT 40%. HAS TOLERATED WELL T/O THE NIGHT. SUCTION RESULTED IN SMALL AMOUNTS OF WHITE THICK SPUTUM. ABLE TO COUGH, SWALLOW. LS COARSE T/O. ETT TUBE NOTED TO CAUSE SOME OPEN AREAS TO THE UPPER RIGHT ORAL CAVITY, CAUSING SENSENTIVITY. TUBE ADJUSTED FREQUENTLY. GOOD ORAL CARE PROVIDED. HAS REMAINED IN SINUS AVERAGE RATE 70-80'S. CONTINUES ON CARDIZEM AT 5. WAS ABLE TO LIFT BOTH ARMS EQUALLY TONIGHT 1/4 WAY UP BUT STILL VERY WEAK. MILD EDEMA TO BLE, BUE, PITTING. ELEVATION PROVIDED. APARNA CONTINUES TO BE PATIENT, 1200ML OUTPUT THIS SHIFT. WOUNDS SHOWING HEALING. DID ANSWER YES WHEN ASKED IF HE FEELS LIKE HE NEEDS TO HAVE A BM, BUT HAS NOT BEEN ABLE TO PROVIDE BM. BLOOD SUGAR HIGHEST AT 198. VITALS HAVE REMAINED STABLE. NO OTHER CHANGES TO NOTE. WILL REPORT OFF.
--- NOTE | 2021-12-27 08:26 | NUR ---
AM NOTE.... ASSUMED CARE OF PT AT 0700, THE PT IS INTUBATED ON PRESSURE SUPPORT OF 8/5 AND 40% WITH O2 SATS >90% L/S CLEAR IN THE UPPER LOBES COARSE IN THE LOWER LOBES, THIS IS AN IMPROVMENT FROM YESTERDAY, THE PT'S TRACIAL SECRETIONS HAVE GREATLY DECREASED FROM YESTERDAY DURING THIS ASSESSMENT A SMALL AMOUNT OF THIN CLEAR/WHITE WERE SUCTION VIA ET TUBE. THE PT'S ORAL SECRETIONS ARE ALSO SMALL THIN AND CLEAR. THE PT IS RESPONDS TO VERBAL STIMULI AND IS ABLE TO WEAKLY FOLLOW COMMANDS AND MOVE ALL EXTREMITIES WEAKLY. THE PT'S ET TUBE IS 7.5 AND 24 AT THE GUMS. THE PT'S OG TUBE IS RUNNING TUBE FEEDS PER ORDERS AT 45MLS/HR WITH NO RESIDUALS. BT PRESENT AND HYPOACTIVE,ABD IS SOFT TO PALPATION. THE PT'S BRAUN IS PATENT AND DRAINING TO GRAVITY. THE PT'S RIGHT LEG IS SLIGHTLY ROTATED OUTWARD, THE PT CURRENTLY DENIES ANY PAIN, THE LACERATIONS ON THE PT'S FACE ARE HEALING WELL AT THIS TIME, NO SWELLING, BLEEDING OR SIGNS OF INFECTION. THE PT IS IN SR IN THE 70'S-80'S BP STABLE, PER NOC SHIFT RN REPORT THE PT DID NOT HAVE ANY SVT EVENTS LAST NIGHT. THE PT HAS 3+ EDEMA NOTED TO HIS BUE, TRACE EDEMA NOTED TO HIS BLE AND PERIORBITAL EDEMA D/T TRUAMA IS NOTED. PLAN IS TO EXTUBATE TODAY. WILL CONTINUE TO MONITOR.
--- NOTE | 2021-12-27 08:47 | NUR ---
PT UPDATE.... PROVIDER AT THE BEDSIDE FOR ASSESSMENT, PLAN IS TO EXTUBATE THE PT PENDING CHEST XRAY RESULTS. WILL CONTINUE TO MONITOR.
--- NOTE | 2021-12-27 12:04 | NUR ---
PT UPDATE.... THE PT WAS EXTUBAED AT 1040 BY RT, ONCE THE ET TUBE WAS REMOVED THE PT BECAME APNIC, THE PT WAS STRUGGLING WITH AN UPPER AIRWAY OBSTRUCTION, STRIDOR WAS ALSO NOTED. DR. LADD WAS CALLED INTO THE ROOM TO ASSESS THE PT. THE PT WAS PLACED ON 2L NC WHICH WAS QUICKLY TITRATED UP TO 4L NC, ORDERS WERE GIVEN AT THIS TIME FOR A NEBULIZER OF RACEPINEHPRINE AND DUONEB. THE PT WAS ALSO GIVEN A 1 TIME DOSE OF SOLUMEDROL IV. THE PT'S RR WAS IN THE HIGH 30'S, HIS HR INCREASED FROM THE 80'S TO THE 120'S SR W/FREQUENT PVCs. THE PT ALSO BECAME HYPERTENSIVE WITH SBPs IN THE 200'S. AT 1115 THE PT WAS STARTED ON A BIPAP THE PT'S O2 SATS IMPROVED SLIGHLTY BUT HIS WORK OF BREATHING DID NOT. AT 1123 THE PT WAS REINTUBATED BY , HE WAS GIVEN 20MG OF ETOMADATE, THE ET TUBE IS 7.5 AND 23 AT THE GUMS, PROPOFOL DRIP WAS STARTED AT 40MCG. VENT SETTINGS AC/VC: 15/450/5/40% WITH O2 SATS >90%. AN OG TUBE WAS ALSO PLACED DURING THIS TIME WITH SOME DIFFICULTY, THE BACK OF THE PT'S TONGUE WAS VERY SWOLLEN AND OBSTRUCTING THE UPPER AIRWAY. A CHEST XRAY WAS DONE AND SHOWED THE ET TUBE WAS NOT DEEP ENOUGH, THE ET TUBE WAS PUSHED FROM 23 AT THE GUMS TO 25 AT THE GUMS BY RT WITH THIS RN ASSISTING NO CHANGES TO THE PT'S O2 SATS. BLEEDING WAS NOTED IN THE PT'S MOUTH DURING INTUBATION, ORAL CARE DONE AND THE BLEEDING HAS MINIMIZED. WILL CONTINUE TO MONITOR.
--- NOTE | 2021-12-27 13:58 | NUR ---
PT UPDATE.... DURING THE PT'S Q2 TURN THIS RN REMOVED THE MEPILEX DRESSING AND SAW THE PT' HAD A DEEP TISSUE WOUND WITH A BLISTER ON TOP OF IT TO THE PT'S COCCYX, PICTURES WERE TAKEN AND PLACED IN THE CHART, A NEW MEPILEX WAS PLACED OVER THE PT'S COCCYX AND THE PT WAS TURNED TO HIS LEFT SIDE. THE PT'S VS HAVE BEEN STABLE SINCE INTUBATION. THE PT COUGHED A LOT DURING THE TURNING AND REPOSITIONING, HIS O2 SATS DROPPED SLIGHTLY DURING THE COUGHING FIT BUT QUICKLY IMPROVED ONCE HE HAD CALMED DOWN, THE PT'S PROPOFOL WAS INCREASED TO 50MCG. WILL CONTINUE TO MONITOR.
--- NOTE | 2021-12-27 17:49 | NUR ---
SHIFT SUMMARY.... NO ACUTE NEGATIVE CHANGES NOTED SINCE PREVIOUS NOTES, THE PT'S VS HAVE BEEN STABLE, THE PT CONTINUES TO BE ON THE VENT WITH NO CHANGES TO HIS VENT SETTINGS OF AC/VC:15/450/5/40%. L/S CLEAR T/O DIM IN THE BASES. TUBE FEEDS CONTINUE AT GOAL RATE OF 45MLS/HR WITH NO RESIDUALS. THE PT'S PROPOFOL IS RUNNING AT 40MCG. THIS RN NOTED THAT THE PT'S BUE AND HANDS WERE SO EDEMATOUS THEY WERE STARTING TO WHEEP, DR. LADD NOTIFIED AND A ONE TIME ORDER FOR LASIX WAS GIVEN. THE PT DID NOT HAVE A BM THIS SHIFT. THE PT'S SISTER THEO WAS UPDATED ON THE FAILED EXTUBATION AND THE PLAN OF CARE. THE PT WAS STARTED ON PT CARDIZEM WITH THE GOAL OF STOPPING THE CARDIZEM DRIP. WILL CONTINUE TO MONITOR UNTIL REPORT IS GIVEN TO ONCOMING RN.
--- NOTE | 2021-12-27 19:20 | NUR ---
ASSUMED PT CARE AT 1915 PT INTUBATED AND SEDATED. PROPOFOL AT 50MCG/KG/MIN, WHICH WAS PLACED ON STANDBY FOR SEDATION VACATION/NEURO ASSESSMENT. VENT AC/VC 16, 450, PEEP 5, FIO2 40%, SPO2 97%, RR 19. CARDIZEM GTT OFF AT THIS TIME. PT REMAINS IN NSR WITH HR 60'S. BP'S STABLE, SEE FLOWSHEET. PIVOT 1.5 AT GOAL OF 45ML/HR. PT HAS BRAUN CATHETER THAT IS PATENT AND DRAINING TO GRAVITY. SEE SHIFT SUMMARY FOR FURTHER DETAILS.
[2021-12-28 04:13] LABS: BASOPHILS ABSOLUTE AUTO 0.01 K/mm3 (0.00-0.23); BASOPHILS PERCENT AUTO 0 % (0-2); EOSINOPHILS PERCENT AUTO 0 % (0-6); Hematocrit 33.2 % (37.0-53.0); Hemoglobin 10.9 g/dL (13.5-17.5); IMMATURE GRAN ABSOLUTE AUTO 0.06 K/mm3 (0.00-0.10); IMMATURE GRAN PERCENT AUTO 1 % (0-1); LYMPHOCYTES PERCENT AUTO 7 % (21-46); MONOCYTES ABSOLUTE AUTO 0.23 K/mm3 (0.16-1.47); MONOCYTES PERCENT AUTO 4 % (4-13); Mean Corpuscular HGB 29.6 pg (26.0-34.0); Mean Corpuscular HGB Conc 32.8 g/dL (31.5-36.5); Mean Corpuscular Volume 90 fL (80-100); Mean Platelet Volume 11.9 fL (9.1-12.4); NEUTROPHILS ABSOLUTE AUTO 5.34 K/mm3 (1.96-9.15); NEUTROPHILS PERCENT AUTO 88 % (41-73); Platelet Count 300 K/mm3 (150-400); RDW Coefficient Variation 16.5 % (11.7-14.2); RDW Standard Deviation 55.4 fL (35.1-46.3); Red Blood Cell Count 3.68 M/mm3 (4.30-5.90); White Blood Cell Count 6.04 K/mm3 (4.00-11.30)
[2021-12-28 04:40] LABS: Anion Gap 6 mmol/L (6-16); Blood Urea Nitrogen 52 mg/dL (8-24); Bun/Creatinine Ratio 53.6 (12.0-20.0); CO2, Blood 28 mmol/L (21-32); Calcium, Blood 9.3 mg/dL (8.5-10.1); Chloride, Blood 109 mmol/L (98-108); Creatinine, Blood 0.97 mg/dL (0.60-1.20); Glomerular Filtration Rate >60 (60-); Glucose, Blood 302 mg/dL (70-99); Magnesium, Blood 2.2 mg/dL (1.6-2.4); Phosphorus, Blood 3.7 mg/dL (2.5-4.9); Potassium, Blood 4.4 mmol/L (3.5-5.5); Sodium, Blood 143 mmol/L (136-145)
--- NOTE | 2021-12-28 05:08 | NUR ---
END OF SHIFT SUMMARY PT REMAINS INTUBATED AND ON LIGHT SEDATION. PT ABLE TO OPEN EYES TO VERBAL STIMULI WITH PROPOFOL AT 15MCG/KG/MIN. PT IS VERY DROWSY AND DOESN'T FOLLOW COMMANDS WELL ON SEDATION OFF SEDATION. VERY WEAK. VENT AC/VC 16, VT 450, PEEP 5, FIO2 30%, RR <20, SPO2 >90%. PT REMAINED IN NSR WITH HR 60-70'S MOSTLY; HOWEVER, DID HOLD THIS MORNING'S LOPRESSOR DOSE D/T HR DROPPING TO THE 50'S. BP'S REMAIN STABLE. PIVOT 1.5 AT GOAL OF 45ML/HR WITH NO RESIDUALS. BRAUN IS PATENT AND DRAINING MAIRA COLORED URINE TO GRAVITY. WILL CONTINUE TO MONITOR UNTIL REPORT IS HANDED OFF TO ONCOMING RN.
--- NOTE | 2021-12-28 08:12 | NUR ---
AM NOTE... ASSUMED CARE OF PT AT 0700, THE PT IS INTUBATED AND ON PROPOFOL AT 15MCG BUT IS ABLE TO RESPOND TO VERBAL STIMULI, NOD HIS HEAD APPROPRIATELY AND FOLLOW SIMPLE COMMANDS LIKE "WRIGGLE YOUR TOES." THE PT'S VENT SETTINGS ARE AC/VC: 15/450/5/40% WITH O2 SATS >90%. L/S CLEAR IN THE UPPER LOBES DIM IN THE LOWER. A SMALL AMOUNT OF THIN CLEAR SECRETIONS SUCTIONED VIA ET TUBE. THE PT IS IN SR IN THE 60'S, BP STABLE. THE PT'S BUE HAVE MODERATE WHEEPING DEPENDENT EDEMA. THE PT'S OG TUBE IS RUNNING TUBE FEEDS PER ORDER AT 45MSL/HR 30MLS OF RESIDUAL NOTED AND REINSTILLED. BT PRESENT AND HYPOACTIVE, ABD IS SOFT AND NONTENDER TO PALP. THE PT'S TONGUE DOES NOT SEEM SWOLLEN TODAY IT DID YESTERDAY. WILL CONTINUE TO MONITOR.
--- NOTE | 2021-12-28 09:58 | NUR ---
PT UPDATE.... PROVIDER AT THE BEDSIDE TO ASSESS THE PT. THE PT WAS ABLE TO WEAKLY FOLLOW COMMANDS, PT HAS MINIMAL MOVEMENT TO HIS ARMS AND LEGS BUT IS ABLE TO FOLLOW DIRECTIONS. PLAN IS TO KEEP THE PT INTUBATED FOR TODAY, THE PT'S PROPOFOL WAS INCREASED FROM 20 TO 40MCG TO KEEP THE PT COMFORTABLE. WILL CONTINUE TO MONITOR
--- NOTE | 2021-12-28 11:51 | NUR ---
PT UPDATE.... THE PT'S TUBE FEED RATE WAS CHANGED FROM 45MLS/HR TO 40MLS/HR PER ORDERS. THE PT'S CARDIZEM AND METROPROLOL WERE HELD THIS AFTERNOON D/T THE PT'S HR BEING IN THE MID 50'S PER DR. DONOVAN. THE PT'S OTHER VS ARE STABLE AT THIS TIME. WILL CONTINUE TO MONITOR.
--- NOTE | 2021-12-28 18:31 | NUR ---
SHIFT SUMMARY... NO ACUTE NEGATIVE CHANGES NOTED THIS SHIFT. THE PT'S VS HAVE BEEN STABLE T/O THIS SHIFT. THE PT HAS BEED TURNED Q2 HRS AND PRN THIS SHIFT. THE PT'S BRAUN IS PATENT AND DRAINING TO GRAVITY, THE PT HAS NOT HAD A BM THE PAST 3 DAYS, BOWEL CARE STARTED BY THIS RN. THE PT WAS MEDICATED FOR PAIN SEVERAL TIMES T/O THIS SHIFT. NO CHANGES TO THE PLAN OF CARE AT THIS TIME. WILL CONTINUE TO MONITOR UNTIL REPORT IS GIVEN TO ON COMING RN.
[2021-12-29 05:46] LABS: BASOPHILS ABSOLUTE AUTO 0.01 K/mm3 (0.00-0.23); BASOPHILS PERCENT AUTO 0 % (0-2); EOSINOPHILS ABSOLUTE AUTO 0.01 K/mm3 (0.00-0.68); EOSINOPHILS PERCENT AUTO 0 % (0-6); Hematocrit 31.7 % (37.0-53.0); Hemoglobin 10.4 g/dL (13.5-17.5); IMMATURE GRAN ABSOLUTE AUTO 0.06 K/mm3 (0.00-0.10); IMMATURE GRAN PERCENT AUTO 1 % (0-1); LYMPHOCYTES ABSOLUTE AUTO 0.57 K/mm3 (0.84-5.20); LYMPHOCYTES PERCENT AUTO 5 % (21-46); MONOCYTES PERCENT AUTO 8 % (4-13); Mean Corpuscular HGB 29.6 pg (26.0-34.0); Mean Corpuscular HGB Conc 32.8 g/dL (31.5-36.5); Mean Corpuscular Volume 90 fL (80-100); Mean Platelet Volume 11.8 fL (9.1-12.4); NEUTROPHILS ABSOLUTE AUTO 10.24 K/mm3 (1.96-9.15); NEUTROPHILS PERCENT AUTO 86 % (41-73); NRBC ABSOLUTE 0.02 K/mm3 (0.00-0.02); NRBC Auto 0.2 /100 WBC (0.0-0.2); Platelet Count 358 K/mm3 (150-400); RDW Coefficient Variation 16.6 % (11.7-14.2); RDW Standard Deviation 55.5 fL (35.1-46.3); Red Blood Cell Count 3.51 M/mm3 (4.30-5.90); White Blood Cell Count 11.89 K/mm3 (4.00-11.30)
[2021-12-29 06:27] LABS: Alanine Aminotransfer (ALT/SGP 54 U/L (12-78); Albumin, Blood 1.8 g/dL (3.4-5.0); Anion Gap 3 mmol/L (6-16); Aspartate Aminotrans (AST/SGOT 32 U/L (12-37); Blood Urea Nitrogen 62 mg/dL (8-24); CO2, Blood 30 mmol/L (21-32); Calcium, Blood 9.5 mg/dL (8.5-10.1); Chloride, Blood 112 mmol/L (98-108); Creatinine, Blood 0.89 mg/dL (0.60-1.20); Glomerular Filtration Rate >60 (60-); Glucose, Blood 323 mg/dL (70-99); Magnesium, Blood 2.6 mg/dL (1.6-2.4); Phosphorus, Blood 2.4 mg/dL (2.5-4.9); Potassium, Blood 4.4 mmol/L (3.5-5.5); Sodium, Blood 145 mmol/L (136-145)
[2021-12-29 06:29] LABS: Albumin/Globulin Ratio 0.5 (0.8-1.8); Alk Phos 93 U/L (50-136); Bilirubin, Total 0.2 mg/dL (0.1-1.0); Globulin, Blood 3.6 g/dL (2.2-4.0); Total Protein, Blood 5.4 g/dL (6.4-8.2)
--- NOTE | 2021-12-29 06:44 | NUR ---
SHIFT SUMMARY: LINSEY HAD A STABLE UNEVENTFUL NIGHT. NO VENT CHANGES. HE WILL WAKE UP AND FOLLOW COMMANDS BUT IS VERY WEAK. HE IS SEDATED WITH PROPOFOL AND HAS RECEIVED 50MCG FENTANYL X1. BATH AND Q2 TURNS PROVIDED. GOOD URINE OUTPUT. VSS
--- NOTE | 2021-12-29 10:40 | NUR ---
ASSUMED CARE OF PT, REPORT RCV'D FROM JOHNATHAN DORAN. PT INTUBATED AND SEDATED, VENT SETTINGS AC 15/480/5/30% AT START OF SHIFT. PT SWITCHED TO SPON 10/5, 30%, TOLERATING WELL. PT RESPONSIVE TO PAINFUL STIMULATION ON PROPOFOL 35 MCG/KG/MIN, WHEN PROPOFOL DECREASED TO 25 MCG/KG/MIN PT OPENS EYES TO VERBAL STIMULATION AND FOLLOWS COMMANDS BUT BECOMES HYPERTENSIVE. TEMPERATURE CURRENTLY 100.9. PIVOT 1.5 AT GOAL RATE 40 ML/HR. BRAUN PATENT AND DRAINING CLEAR YELLOW URINE. UPDATED PICTURES OF FACIAL AND HIP INJURIES ON CHART. SEE FULL SHIFT ASSESSMENT.
--- NOTE | 2021-12-29 12:24 | NUR ---
Pt. was soundly sleeping and was unresponsive to my call. Pastorally prayer over the pt.
--- NOTE | 2021-12-29 16:54 | NUR ---
SHIFT SUMMARY NO ACUTE CHANGES THIS SHIFT. PT REMAINS INTUBATED AND LIGHTLY SEDATED. VENT SETTINGS AC 15/450/5/30%. PROPOFOL @ 25 MCG/KG/MIN. PT RESPOND OPENS EYES TO VERBAL STIMULATION, FAILS TO FOLLOW COMMANDS AT THIS TIME. PT TREATED FOR HYPERTENSION TWICE PER EMAR. PT REMAINS HYPERGLYCEMIC, WILL START LONG ACTING INSULIN THIS EVENING. TMAX 100.9, CURRENT TEMP 99.3. SEE PREVIOUS NOTES FROM THIS SHIFT. WILL REPORT TO ONCOMING NURSE.
[2021-12-29 21:06] LABS: Influenza A, PCR NEGATIVE (NEGATIVE); Influenza B, PCR NEGATIVE (NEGATIVE); Resp Syncytial Virus, PCR NEGATIVE (NEGATIVE); SARS-Cov-2 (COVID-19) PCR, MMC NEGATIVE (NEGATIVE)
[2021-12-30 04:20] LABS: Anion Gap 1 mmol/L (6-16); Blood Urea Nitrogen 67 mg/dL (8-24); Bun/Creatinine Ratio 76.8 (12.0-20.0); CO2, Blood 32 mmol/L (21-32); Calcium, Blood 10.1 mg/dL (8.5-10.1); Chloride, Blood 114 mmol/L (98-108); Creatinine, Blood 0.87 mg/dL (0.60-1.20); Glomerular Filtration Rate >60 (60-); Glucose, Blood 187 mg/dL (70-99); Potassium, Blood 4.5 mmol/L (3.5-5.5); Sodium, Blood 147 mmol/L (136-145)
--- NOTE | 2021-12-30 06:28 | NUR ---
NO SIGNIFICANT CHANGES IN PT CONDITION OVERNIGHT. HE CONTINUES ON VENT SETTINGS AC/VC+ 16/450/5/30% WITH PLANS TO WEAN AND ATTEMPT EXTUBATION TODAY. PT BECOMES HTN WITH ANY REPOSITIONING, IMPROVED WITH FENTANYL IV AND HYDRALAZINE. PUPILS ARE MORE EQUAL, L IS MORE SLUGGISH THAN R. BOTH ARMS ARE EDEMATOUS AND ELEVATED ON PILLOWS, THE L IS WEEPING. BT ACTIVE, PT IS PASSING FLATUS, MOM GIVEN VIA OG. R HIP ABRASION IMPROVING AND FACIAL LACERATIONS ARE HEALING. WILL CONTINUE TO MONITOR AND REPORT TO ONCOMING SHIFT.
[2021-12-30 06:56] LABS: BASOPHILS ABSOLUTE AUTO 0.02 K/mm3 (0.00-0.23); BASOPHILS PERCENT AUTO 0 % (0-2); EOSINOPHILS ABSOLUTE AUTO 0.01 K/mm3 (0.00-0.68); EOSINOPHILS PERCENT AUTO 0 % (0-6); Hematocrit 36.6 % (37.0-53.0); Hemoglobin 11.6 g/dL (13.5-17.5); IMMATURE GRAN ABSOLUTE AUTO 0.16 K/mm3 (0.00-0.10); IMMATURE GRAN PERCENT AUTO 1 % (0-1); LYMPHOCYTES ABSOLUTE AUTO 1.23 K/mm3 (0.84-5.20); LYMPHOCYTES PERCENT AUTO 9 % (21-46); MONOCYTES PERCENT AUTO 8 % (4-13); Mean Corpuscular HGB 29.1 pg (26.0-34.0); Mean Corpuscular HGB Conc 31.7 g/dL (31.5-36.5); Mean Corpuscular Volume 92 fL (80-100); Mean Platelet Volume 11.3 fL (9.1-12.4); NEUTROPHILS ABSOLUTE AUTO 10.62 K/mm3 (1.96-9.15); NEUTROPHILS PERCENT AUTO 81 % (41-73); Platelet Count 417 K/mm3 (150-400); RDW Coefficient Variation 16.6 % (11.7-14.2); RDW Standard Deviation 56.3 fL (35.1-46.3); Red Blood Cell Count 3.99 M/mm3 (4.30-5.90); White Blood Cell Count 13.14 K/mm3 (4.00-11.30)
--- NOTE | 2021-12-30 10:27 | NUR ---
Pt. was in bed and resting. Pt. eyes opened when I announced my presence. Pt. was otherwise unresponsive. Pastorally prayed for pt.
--- NOTE | 2021-12-30 10:50 | NUR ---
PATIENT PROGRESS NOTE 12/30/21 PATIENT WAS ABLE TO OPEN HIS EYES AND GRIMMACE WITH CARE THIS AM AT 0800. HE WAS TAKEN OFF PROPOFOL AT 0730 AND TUBE FEEDING AT 0730. HE WAS NOT MOVING HIS EXTREMETIES THIS MORNING. NOW AT 1030 HE IS TRACKING NURSES IN THE ROOM. HE IS POSITIVE FOR A GAG NOW AND SLIGHTLY MOVES HIS TONGUE WHEN ASKED. HE IS MOVING HIS RIGHT HAND AND ARM WELL AND MOVING HIS LEFT HAND WHEN PROMPTED HOWEVER WEAKER ON THE LEFT THAN THE RIGHT FOR EMERGENCY ROOM REGISTERED NURSE. HE IS MOVING HIS TOES BILATERALLY EVER SO SLIGHTLY TO STIMULI. BRAUN IN PLACE AT THIS TIME WITH GOOD OUTPUT. TWO POWERGLIDES IN PLACE UPPER ARMS BILAT. WORKING WELL WITH GOOD BLOOD RETURN. BP STILL ELEVATED AND HYDRALAZINE AND VASOTEC GIVEN ONE TIME EACH THUS FAR TODAY. DR AT BEDSIDE FREQUENLTY TO ASSESS FOR READINESS TO WEAN. PATIENT HAS BEEN ON SPONATEOUS SETTINGS SINCE 0750 THIS AM.
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
[2021-12-31 04:11] LABS: BASOPHILS ABSOLUTE AUTO 0.02 K/mm3 (0.00-0.23); BASOPHILS PERCENT AUTO 0 % (0-2); EOSINOPHILS ABSOLUTE AUTO 0.11 K/mm3 (0.00-0.68); EOSINOPHILS PERCENT AUTO 1 % (0-6); Hematocrit 37.8 % (37.0-53.0); IMMATURE GRAN ABSOLUTE AUTO 0.17 K/mm3 (0.00-0.10); IMMATURE GRAN PERCENT AUTO 1 % (0-1); LYMPHOCYTES PERCENT AUTO 8 % (21-46); MONOCYTES ABSOLUTE AUTO 1.15 K/mm3 (0.16-1.47); MONOCYTES PERCENT AUTO 8 % (4-13); Mean Corpuscular HGB 29.1 pg (26.0-34.0); Mean Corpuscular HGB Conc 31.7 g/dL (31.5-36.5); Mean Corpuscular Volume 92 fL (80-100); Mean Platelet Volume 11.6 fL (9.1-12.4); NEUTROPHILS ABSOLUTE AUTO 12.36 K/mm3 (1.96-9.15); NEUTROPHILS PERCENT AUTO 82 % (41-73); Platelet Count 450 K/mm3 (150-400); RDW Coefficient Variation 16.6 % (11.7-14.2); RDW Standard Deviation 55.8 fL (35.1-46.3); Red Blood Cell Count 4.13 M/mm3 (4.30-5.90); White Blood Cell Count 15.01 K/mm3 (4.00-11.30)
[2021-12-31 04:37] LABS: Alanine Aminotransfer (ALT/SGP 50 U/L (12-78); Albumin, Blood 2.1 g/dL (3.4-5.0); Albumin/Globulin Ratio 0.5 (0.8-1.8); Alk Phos 108 U/L (50-136); Anion Gap 2 mmol/L (6-16); Aspartate Aminotrans (AST/SGOT 21 U/L (12-37); Bilirubin, Total 0.4 mg/dL (0.1-1.0); Blood Urea Nitrogen 62 mg/dL (8-24); CO2, Blood 32 mmol/L (21-32); Calcium, Blood 10.1 mg/dL (8.5-10.1); Chloride, Blood 110 mmol/L (98-108); Creatinine, Blood 0.78 mg/dL (0.60-1.20); Glomerular Filtration Rate >60 (60-); Glucose, Blood 193 mg/dL (70-99); Potassium, Blood 5.1 mmol/L (3.5-5.5); Sodium, Blood 144 mmol/L (136-145); Total Protein, Blood 6.1 g/dL (6.4-8.2)
--- NOTE | 2021-12-31 05:41 | NUR ---
SHIFT SUMMARY: ALERT, FOLLOWS DIRECTIONS. PUPILS WERE A 4 VERY SLUGGISH BILATERALLY. WAS ABLE TO CLOSE FIST JUST HIS RESPONSE IS SLOW WITH ALL DIRECTIONS. RAISED ARM OFF THE BED AND HAD FLEXION WITHDRAWL ON BILATERAL FEET. GAG, COUGH, AND SWALLOW WERE ALL NOTED. SWALLOW WAS FAINT BUT HE WAS ABLE TO DO IT. WAS ONLY ABLE TO GET HIM TO SWALLOW ONCE. PLACED BACK ON CONTROL SETTINGS ON VENT WHICH HE HAS TOLERATED T/O THE NIGHT. LS DIMINISHED IN BASES. MODERATE AMOUNT OF SECREATIONS NOTED, THICK YELLOW. TF RUNNING AT GOAL, RESIDUALS REINSTALLED 10-60 EACH TIME. NO BM THIS SHIFT. HYPERTENSIVE MID SHIFT, HYDRALAZINE GIVEN. FENTANYL WAS GIVEN ONCE FOR GRIMACING AND HEAD NOD FOR PAIN. PRESSURE ULCER ON BOTTOM IS STARTING TO OPEN UP. SMALL AMOUNT OF DRAINAGE, REPOSITION Q2. CONDOM CATH IN PLACE AND WORKING, GOOD URINE OUTPUT. WILL REPORT TO DAYSHIFT.
--- NOTE | 2021-12-31 07:42 | NUR ---
ASSUMED CARE PT MINIMALLY RESPONSIVE THIS AM WITH NO SEDATION. REMAINS ON VENT. CURRENTLY ON SETTINGS OF AC 16,450, PEEP 5, 30% FIO2. PT. OPENS EYES TO VERBAL STIMULI, NODS YES AND NO TO SOME QUESTIONS HOWEVER VERY SLOW TO RESPOND. PT. SQUEEZES RIGHT HAND TO REQUEST, VERY DELAYED BUT DOES NOT SQUEEZE LEFT HAND OR WIGGLE TOES. FACIAL GRIMACE WITH ANY MOVEMENT. PT DOES COUGH AND GAG WITH ORAL SUCTION. CONDOM CATH IN PLACE, DRAINING TO GRAVITY. TF INFUSING AT GOAL, RESIDUAL OF 60ML REINSTILLED. PT. BILAT UE REMAIN EDEMATOUS, AND WEEPING. ARMS ELEVATED ON PILLOWS. PT. HAS BILAT WRIST RESTRAINTS IN PLACE. VSS AT THIS TIME.
--- NOTE | 2021-12-31 10:00 | NUR ---
PT PLACED ON SPONT. PS 8, APO2 30% PEEP 5. RR OF 22. PT TOLERATING WELL. PLANS FOR REPEAT HEAD CT
--- NOTE | 2021-12-31 10:09 | NUR ---
Pt. is resting and is unresponsive to my introduction. Attempted to rouse pt. with verbal commands. Pt. remained unresponsive. Prayed for pt.
--- NOTE | 2021-12-31 16:05 | NUR ---
PT. TAKEN TO CT SCAN AT TIME CONCERNS DUE TO LACK OF GAG WITH DEEP SUCTION, AND MINIMAL INTERACTION DESPITE BEING OFF OF SEDATION. SUTURES REMOVED FROM CHEEK AND LIP.
--- NOTE | 2021-12-31 17:00 | NUR ---
PT SISTER UPDATED BY DR. COLLAZO.
--- NOTE | 2021-12-31 20:00 | NUR ---
ASSUMED CARE. MINIMAL RESPONSE, STILL NO SEDATION. CURRENTLY ON P-SPONTANOUS VENT SETTINGS OF 12/8 30%. WILL OPEN EYES TO VERBAL STIMULI, VERY SLOW TO RESPOND. WILL SQUEEZE HAND, LIFT SLIGHTLY AND WIGGLE TOES ON THE RIGHT BUT UNABLE TO ON THE LEFT. PUPILS UNEVEN, VERY SLOW TO REACT. MILD FLEXION WITHDRAWL. NO GAG OR COUGH BUT ABLE TO SWALLOW. TKO TO PG. PERIPHERAL SL. REPOSITIONED, ORAL CARE WITH MODERATE AMOUNT OF SECREATIONS. RT PLACED VENT ON ASSIST CONTROL FOR THE NIGHT. SOME ROM DONE BEFORE PLACEING BACK IN BILATERAL WRIST RESTRAINTS.
[2022-01-01 04:08] LABS: BASOPHILS ABSOLUTE AUTO 0.02 K/mm3 (0.00-0.23); BASOPHILS PERCENT AUTO 0 % (0-2); EOSINOPHILS ABSOLUTE AUTO 0.16 K/mm3 (0.00-0.68); EOSINOPHILS PERCENT AUTO 1 % (0-6); Hematocrit 35.4 % (37.0-53.0); Hemoglobin 11.7 g/dL (13.5-17.5); IMMATURE GRAN ABSOLUTE AUTO 0.13 K/mm3 (0.00-0.10); IMMATURE GRAN PERCENT AUTO 1 % (0-1); LYMPHOCYTES ABSOLUTE AUTO 0.76 K/mm3 (0.84-5.20); LYMPHOCYTES PERCENT AUTO 4 % (21-46); MONOCYTES PERCENT AUTO 6 % (4-13); Mean Corpuscular HGB Conc 33.1 g/dL (31.5-36.5); Mean Corpuscular Volume 91 fL (80-100); Mean Platelet Volume 11.4 fL (9.1-12.4); NEUTROPHILS ABSOLUTE AUTO 16.85 K/mm3 (1.96-9.15); NEUTROPHILS PERCENT AUTO 89 % (41-73); Platelet Count 476 K/mm3 (150-400); RDW Coefficient Variation 16.3 % (11.7-14.2); RDW Standard Deviation 54.2 fL (35.1-46.3); White Blood Cell Count 19.02 K/mm3 (4.00-11.30)
[2022-01-01 04:27] LABS: Anion Gap 2 mmol/L (6-16); Blood Urea Nitrogen 55 mg/dL (8-24); Bun/Creatinine Ratio 77.5 (12.0-20.0); CO2, Blood 31 mmol/L (21-32); Chloride, Blood 111 mmol/L (98-108); Creatinine, Blood 0.71 mg/dL (0.60-1.20); Glomerular Filtration Rate >60 (60-); Glucose, Blood 187 mg/dL (70-99); Sodium, Blood 144 mmol/L (136-145)
--- NOTE | 2022-01-01 06:40 | NUR ---
SHIFT SUMMARY: WAS PLACED ON (AC) VENT ALL NIGHT SETTINGS 16/450/5/35%. OCCATIONAL COUGH, SUCTION SHOWED THICK YELLOW SECREATIONS MODERATE AMOUNT. ABLE TO OPEN EYES, CLOSE HANDS ON THE RIGHT NONE ON THE LEFT. WAS ABLE TO MOVE TOES ONLY ON THE RIGHT. FLEXION WITHDRAWL ON FEET. WAS ABLE TO LIFT RIGHT ARM AND MOVE IT, LEFT REMAINED FLACCID. PUPILS UNEVEN VERY SLUGGISH. NO GAG, SWALLOW NOTED. CONTINUES TO BE HYPERTENSIVE IN THE 180'S, HAD TO GIVE HYDRALAZINE TWICE. FENTANYL WAS GIVEN TWICE DUE TO SIGNS OF DISCOMFORT AND PAIN. CONDOM CATH REPLACED TWICE. BED CHANGE DONE DUE TO THIS CAUSING HIS PAIN TO SPIKE THIS AM. BLOOD SUGARS HIGH 100'S, HAD TO COVER TWICE WITH 3 UNITS. DTI OPENED UP ON COCCYX, TOP LAYER OF TISSUE SHEARED UP. CLEANSED AND APPLIED FOAM DRESSING. NEW PICTURE ON CHART. NO OTHER CHANGES TO NOTE. WILL REPORT TO DAYSHIFT.
--- NOTE | 2022-01-01 12:00 | NUR ---
ASSUMED CARE OF PATIENT 0700: LARISSA ORIENTATION FULLY, FOLLOWS COMMANDS (SQUEEZE HAND R SIDE AND SHAKES HEAD), MINIMAL PAIN WITHDRAW BLE, PUPILS SLUGGISH 2/3MM, LUNGS CLEAR/DIM, MODERATE SECRETIONS, SPONTANEOUS MODE THIS AM TOLERATING, NO EXTUBATION PER MED, SOME HTN, 20MG LABETELOL GIVEN, NSR 80S, RESTRAINTS CONTINUED, TF SET TO GOAL 45ML/HR, MESSAGE LEFT WITH [facility] FOR PATIENT ADVANCED DIRECTIVE REQUEST, UP TO CHAIR, WILL CONTINUE TO MONITOR.
--- NOTE | 2022-01-01 14:27 | NUR ---
Pt. is sitting in chair, and is nonverbally responsive when addressed. Pt. is still experiencing visceral pain, but nodded to questions. Pt. welcomed pastoral prayer. While it was difficult to read pts. reponse, the pt. is improving slowly.
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
--- NOTE | 2022-01-01 17:34 | NUR ---
LARISSA ORIENTATION FULLY D/T CONFUSION/INTUBATION, FOLLOWS COMMANDS AT TIMES, PUPILS UNEQUAL 2/3MM SLUGGISH, WILL NOD IN RESPONSE OR SQUEEZE HAND ON COMMAND, SPONTATNEOUS PS VENT SETTINGS 30% W/ 5 PEEP, MODERATE SECRETIONS, INTERMITTANT COUGH/GAG REFLEX, LUNGS CLEAR/DIM, HTN LABETELOL 20MG GIVEN WITH RETURN TO SBP<160, TF AT GOAL 45ML/HR, U/T PULL RESIDUALS BUT FLUSHES FINE, SKIN L FACIAL/COCCYX/R HIP WOUND REMAIN COVERED FOAM DRESSING NO CHANGE IN WOUND STATUS WHEN ASSESSED, DRESSINGS CDI, UP TO CHAIR MOST OF SHIFT W/ IMPROVEMENT IN ASSESSMENT RESPONSE, CBGS LOW 200S COVERED WITH INSULIN, WILL CONTINUE TO MONITOR AND REPORT TO NIGHT RN.
--- NOTE | 2022-01-02 02:53 | NUR ---
CALLED ANSWERING SERVICE TO MAKE SURE DR. BERNAL COMES TO SEE PATIENT MARIE. THEY WERE CALLED AROUND 01/01. ANSWERING SERVIVE REP CALLED BACK AROUND 030 SAYING THAT THEY SHOULDN'T HAVE TAKEN THE CONSULT BEFORE. TOGETHER, WE WERE TRYING TO FIGURE OUT WHY THIS PATIENT HAS NOT BEEN SEEN. ORIGINAL CONSULT CALLED IN 12/27 AT 1835 AND THERE HAVE BEEN NO NOTES OR DOCUMENTATION CONFIRMING DR. BERNAL HAS SEEN PATIENT.
[2022-01-02 03:13] LABS: BASOPHILS ABSOLUTE AUTO 0.04 K/mm3 (0.00-0.23); BASOPHILS PERCENT AUTO 0 % (0-2); EOSINOPHILS ABSOLUTE AUTO 0.19 K/mm3 (0.00-0.68); EOSINOPHILS PERCENT AUTO 1 % (0-6); Hematocrit 33.5 % (37.0-53.0); Hemoglobin 11.1 g/dL (13.5-17.5); IMMATURE GRAN ABSOLUTE AUTO 0.09 K/mm3 (0.00-0.10); IMMATURE GRAN PERCENT AUTO 1 % (0-1); LYMPHOCYTES ABSOLUTE AUTO 0.75 K/mm3 (0.84-5.20); LYMPHOCYTES PERCENT AUTO 5 % (21-46); MONOCYTES ABSOLUTE AUTO 0.93 K/mm3 (0.16-1.47); MONOCYTES PERCENT AUTO 6 % (4-13); Mean Corpuscular HGB 29.9 pg (26.0-34.0); Mean Corpuscular HGB Conc 33.1 g/dL (31.5-36.5); Mean Corpuscular Volume 90 fL (80-100); Mean Platelet Volume 11.3 fL (9.1-12.4); NEUTROPHILS ABSOLUTE AUTO 14.68 K/mm3 (1.96-9.15); NEUTROPHILS PERCENT AUTO 88 % (41-73); Platelet Count 462 K/mm3 (150-400); RDW Coefficient Variation 16.2 % (11.7-14.2); RDW Standard Deviation 53.3 fL (35.1-46.3); Red Blood Cell Count 3.71 M/mm3 (4.30-5.90); White Blood Cell Count 16.68 K/mm3 (4.00-11.30)
[2022-01-02 03:34] LABS: Albumin, Blood 1.8 g/dL (3.4-5.0); Anion Gap 4 mmol/L (6-16); Blood Urea Nitrogen 57 mg/dL (8-24); Bun/Creatinine Ratio 72.5 (12.0-20.0); CO2, Blood 30 mmol/L (21-32); Calcium, Blood 9.9 mg/dL (8.5-10.1); Chloride, Blood 109 mmol/L (98-108); Creatinine, Blood 0.79 mg/dL (0.60-1.20); Glomerular Filtration Rate >60 (60-); Glucose, Blood 165 mg/dL (70-99); Phosphorus, Blood 2.4 mg/dL (2.5-4.9); Potassium, Blood 4.5 mmol/L (3.5-5.5); Sodium, Blood 143 mmol/L (136-145)
--- NOTE | 2022-01-02 06:29 | NUR ---
SHIFT SUMMARY: PATIENT REMAINS ON VENT WITH NO SEDATION. HE FOLLOWS COMMANDS AND DENIES PAIN WHEN ASKED. HYDRALAZINE GIVEN X2 FOR D/T HTN. REMAINS IN NSR AND ON MINIMAL VENT SETTINGS. STILL NO BM IN SEVERAL DAYS. MILK OF MAG AND DOCUSATE BOTH GIVEN AT START OF SHIFT AND STILL NO BM. CONDOM CATH INTACT AND HAD ADEQUATE OUTPUT. PATIENT REMAINS IN RAE WRIST RESTRAINTS.
--- NOTE | 2022-01-02 08:35 | NUR ---
Patient responsive, awake, ETT moved to right side, suciton small white from ETT, sxn'd large thick from mouth. B/S slight coarse, cleared with suctioning. HOB 30 degrees, skin warn and dry. ETT secure with bite block
--- NOTE | 2022-01-02 11:38 | NUR ---
ASSUMED CARE OF PATIENT 0700: FOLLOWS COMMANDS, MINIMAL PAIN RESPONSE BLE, WEAKER ON LEFT, PUPILS UNEQUAL 4/3MM, RESTRAINTS CONTINUED RUE ONLY, SPONTANEOUS MODE TOLERATING, LUNGS CLEAR/DIM, CONDOM CATH ADEQUATE UOP, TOLERATING TFFFFF AT GOAL 45ML/HR, PATIENT MADE DNR/DNI BY MD AFTER DISCUSSING WITH SISTER, PATIENT PLACED IN CHAIR NEXT TO WINDOWN, WILL CONTINUE TO MONITOR.
--- NOTE | 2022-01-02 18:46 | NUR ---
AOX1, DIFFICULT TO ASSESS ORIENTATION FULLY D/T INTUBATION/CONFUSION, FOLLOWS COMMANDS AT TIMES, PUPILS UNEQUAL, IMPROVEMENT IN RESPONSIVENESS COMPARED TO PREVIOUS SHIFT, LUNGS CLEAR/DIM, MODERATE SECRETIONS, SPONTANEOUS MODE, SR/ST 80/90S, +2 PULSES, SOME WHEEPING EDEMA +2 ZACK EXTREMETIES, BP HTN, HYDRALAZINE 20MG AND LABETELOL 20MG GIVEN WITH SOME IMPROVEMENT, CONDOM CATH ADEQUATE UOP, HYPOACTIVE NON TENDER BOWELS, WILL CONTINUE TO MONITOR AND REPORT TO NIGHT RN.
[2022-01-03 03:32] LABS: BASOPHILS ABSOLUTE AUTO 0.03 K/mm3 (0.00-0.23); BASOPHILS PERCENT AUTO 0 % (0-2); EOSINOPHILS ABSOLUTE AUTO 0.35 K/mm3 (0.00-0.68); EOSINOPHILS PERCENT AUTO 2 % (0-6); Hematocrit 32.6 % (37.0-53.0); Hemoglobin 10.8 g/dL (13.5-17.5); IMMATURE GRAN ABSOLUTE AUTO 0.08 K/mm3 (0.00-0.10); IMMATURE GRAN PERCENT AUTO 1 % (0-1); LYMPHOCYTES ABSOLUTE AUTO 0.71 K/mm3 (0.84-5.20); LYMPHOCYTES PERCENT AUTO 5 % (21-46); MONOCYTES ABSOLUTE AUTO 1.16 K/mm3 (0.16-1.47); MONOCYTES PERCENT AUTO 8 % (4-13); Mean Corpuscular HGB 29.8 pg (26.0-34.0); Mean Corpuscular HGB Conc 33.1 g/dL (31.5-36.5); Mean Corpuscular Volume 90 fL (80-100); Mean Platelet Volume 11.3 fL (9.1-12.4); NEUTROPHILS PERCENT AUTO 84 % (41-73); Platelet Count 515 K/mm3 (150-400); RDW Coefficient Variation 16.1 % (11.7-14.2); RDW Standard Deviation 52.7 fL (35.1-46.3); Red Blood Cell Count 3.63 M/mm3 (4.30-5.90); White Blood Cell Count 14.43 K/mm3 (4.00-11.30)
[2022-01-03 03:45] LABS: Anion Gap 4 mmol/L (6-16); Blood Urea Nitrogen 51 mg/dL (8-24); Bun/Creatinine Ratio 69.7 (12.0-20.0); CO2, Blood 30 mmol/L (21-32); Calcium, Blood 9.7 mg/dL (8.5-10.1); Chloride, Blood 108 mmol/L (98-108); Creatinine, Blood 0.73 mg/dL (0.60-1.20); Glomerular Filtration Rate >60 (60-); Glucose, Blood 111 mg/dL (70-99); Phosphorus, Blood 2.4 mg/dL (2.5-4.9); Potassium, Blood 4.6 mmol/L (3.5-5.5); Sodium, Blood 142 mmol/L (136-145)
--- NOTE | 2022-01-03 06:05 | NUR ---
SHIFT SUMMARY: PATIENT CONTINUES TO BE INTUBATED WITH NO SEDATION. HE HAS BEEN TOLERATING PS ON THE VENT WITH NO VENT CHANGES. PATIENT FOLLOWS COMMANDS AND DENIES PAIN. HE DOES NOT HAVE A GAG/COUGH REFLEX. SMALL AMT OF SECRETIONS SUCTIONED VIA ETT. VSS. TUBE FEEDS HELD AT 0400 FOR EXTUBATION THIS MORNING. STOOL SOFTENERS GIVEN BUT STILL NO BM. COULD USE A SUPPOSITORY TODAY
--- NOTE | 2022-01-03 09:48 | NUR ---
ASSUMED CARE OF PATIENT AT 0700: FOLLOWING COMMANDS, NO RESPONSE BLL EXTREMETIES, WEAK SERVICE DESK TECHNICIAN L HAND, MODERATE SERVICE DESK TECHNICIAN R HAND, VSS EXCEPT HTN 170S, 20MG LABETELOL GIVEN, SR 70S, MODERATE SECRETIONS, SATS WNL, TF OFF SINCE 4AM, NO BM YET, ORDERING BISCODYL AND WILL GIVE, WILL CONTINUE TO MONITOR.
[2022-01-03 10:56] LABS: PCO2 Arterial 42.8 mmHg (35-45); PO2 Arterial 60.8 mmHg (80-100); pH Blood Arterial 7.45 (7.35-7.45)
--- NOTE | 2022-01-03 17:59 | NUR ---
AOX1, FOLLOWS COMMANDS, INCREASED STRENGTH/MOBILITY RUE, WEAK LUE, MINIMAL PAIN RESPONSE BLE, PUPILS UNEVEN 3/4MM, EXTUBATED 1230 ON 6L NC TOLERATING WELL, LUNGS CLEAR/DIM SOME [place], +2 PULSES, SR 60-80S, HTN HIGH 180S, LABETELOL 20MG X3 AND HYDRALAZINE 20MG GIVEN WITH SOME RESULTS, NO BM SINCE , BISCODYL GIVEN WITH NO RESULTS, CBGS 130-140S NO COVERAGE NEEDED, WILL CONTINUE TO MONITOR AND REPORT TO NIGHT RN.
--- NOTE | 2022-01-03 22:56 | NUR ---
ASSUMED CARE AT 1900 PT LAYING IN BED AND ORIENTED TO SELF ONLY; HE IS ALERT AND ABLE TO FOLLOW DIRECTIONS BUT IS NOT FORMING WORDS, OCCATIONALLY MOANS; IS ABLE TO SHAKE HEAD TO Y/N QUESTIONS; LUE MORE WEAK THAN RUE; PT MOVES RUE MORE FREELY. AFEBRILE. SPO2 >95% ON 6L NC. HR 60-70'S. SBP 170-180'S; PRN HYDRALAZINE GIVEN AND HELPFUL; SBP NOW 150'S. NPO UNTIL SPEECH EVAL IN THE AM. CONDOM CATH REMOVED DUE TO LEAKING; ATTENDS NOW IN PLACE. DRESSING CHANGED TO COCCYX. SEE SHIFT ASSESSMENT FOR FULL ASSESSMENT.
--- NOTE | 2022-01-04 01:17 | NUR ---
UPDATE MIDNIGHT CBG CHECK AND WAS 55. DR CABAN NOTIFIED AND PROVIDED ORDERS FOR 1 AMP OF D50. PLAN TO RECHECK CBG 1 HR AFTER ADMINISTRATION.
--- NOTE | 2022-01-04 03:50 | NUR ---
UPDATE RECHECKED PT CBG AND IT WAS 68. CALLED DR CABAN AND HE PROVIDED NEW ORDERS FOR 1/2 AMP OF D50 NOW FOLLOWED BY D5 1/2 NS TO INFUSE AT 75ML/HR FOR A TOTAL OF 1.5L.
--- NOTE | 2022-01-04 06:24 | NUR ---
END OF SHIFT SUMMARY PT CONT TO BE ALERT/ORIENTED X1; CAN ANSWER Y/N QUESTIONS WITH HEAD NODS. SPO2 >95% ON 6L NC. AFEBRILE. HR 60-70'S. SBP 130-170'S; HYDRALAZINE GIVEN X1, LABETALOL GIVEN X1. ATTENDS IN PLACE. D5 1/2NS INFUSING AT 75ML/HR; LAST CBG WAS 77. WILL REPORT TO AM RN WHEN AVAILABLE.
[2022-01-04 08:34] LABS: BASOPHILS ABSOLUTE AUTO 0.04 K/mm3 (0.00-0.23); BASOPHILS PERCENT AUTO 0 % (0-2); EOSINOPHILS ABSOLUTE AUTO 0.27 K/mm3 (0.00-0.68); EOSINOPHILS PERCENT AUTO 2 % (0-6); Hematocrit 35.1 % (37.0-53.0); Hemoglobin 11.1 g/dL (13.5-17.5); IMMATURE GRAN ABSOLUTE AUTO 0.07 K/mm3 (0.00-0.10); IMMATURE GRAN PERCENT AUTO 1 % (0-1); LYMPHOCYTES ABSOLUTE AUTO 0.78 K/mm3 (0.84-5.20); LYMPHOCYTES PERCENT AUTO 6 % (21-46); MONOCYTES ABSOLUTE AUTO 1.24 K/mm3 (0.16-1.47); MONOCYTES PERCENT AUTO 9 % (4-13); Mean Corpuscular HGB 29.1 pg (26.0-34.0); Mean Corpuscular HGB Conc 31.6 g/dL (31.5-36.5); Mean Corpuscular Volume 92 fL (80-100); Mean Platelet Volume 11.4 fL (9.1-12.4); NEUTROPHILS ABSOLUTE AUTO 11.91 K/mm3 (1.96-9.15); NEUTROPHILS PERCENT AUTO 83 % (41-73); Platelet Count 556 K/mm3 (150-400); RDW Coefficient Variation 15.9 % (11.7-14.2); RDW Standard Deviation 53.7 fL (35.1-46.3); Red Blood Cell Count 3.81 M/mm3 (4.30-5.90); White Blood Cell Count 14.31 K/mm3 (4.00-11.30)
--- NOTE | 2022-01-04 08:37 | NUR ---
ASSUMED CARE OF PATIENT 0700: FOLLOWS COMMANDS, AOX2 ORIENTED TO PLACE/SELF, LUNGS COARSE, ON 6L NC, HTN HYDRALAZINE 20MG GIVEN, +2 PULSES, WHEEPING EDEMA +2 STILL PRESENT ZACK EXTREMETIES, CONDOM CATH PRESENT FOR SKIN INTEGRITY, FOAM DRESSING APPLIED TO R HIP ABRAISION, CHANGED COCCYX DRESSING, WILL CONTINUE TO MONITOR.
[2022-01-04 09:34] LABS: Anion Gap 4 mmol/L (6-16); Blood Urea Nitrogen 39 mg/dL (8-24); Bun/Creatinine Ratio 63.4 (12.0-20.0); CO2, Blood 28 mmol/L (21-32); Chloride, Blood 110 mmol/L (98-108); Creatinine, Blood 0.62 mg/dL (0.60-1.20); Glomerular Filtration Rate >60 (60-); Glucose, Blood 80 mg/dL (70-99); Phosphorus, Blood 3.7 mg/dL (2.5-4.9); Potassium, Blood 4.9 mmol/L (3.5-5.5); Sodium, Blood 142 mmol/L (136-145)
--- NOTE | 2022-01-04 17:39 | NUR ---
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
[2022-01-05 03:41] LABS: BASOPHILS ABSOLUTE AUTO 0.06 K/mm3 (0.00-0.23); BASOPHILS PERCENT AUTO 0 % (0-2); EOSINOPHILS ABSOLUTE AUTO 0.11 K/mm3 (0.00-0.68); EOSINOPHILS PERCENT AUTO 1 % (0-6); Hematocrit 34.8 % (37.0-53.0); Hemoglobin 11.1 g/dL (13.5-17.5); IMMATURE GRAN ABSOLUTE AUTO 0.07 K/mm3 (0.00-0.10); IMMATURE GRAN PERCENT AUTO 1 % (0-1); LYMPHOCYTES ABSOLUTE AUTO 0.53 K/mm3 (0.84-5.20); LYMPHOCYTES PERCENT AUTO 4 % (21-46); MONOCYTES ABSOLUTE AUTO 1.27 K/mm3 (0.16-1.47); MONOCYTES PERCENT AUTO 9 % (4-13); Mean Corpuscular HGB Conc 31.9 g/dL (31.5-36.5); Mean Corpuscular Volume 91 fL (80-100); NEUTROPHILS ABSOLUTE AUTO 12.34 K/mm3 (1.96-9.15); NEUTROPHILS PERCENT AUTO 86 % (41-73); Platelet Count 591 K/mm3 (150-400); RDW Coefficient Variation 15.8 % (11.7-14.2); RDW Standard Deviation 51.8 fL (35.1-46.3); Red Blood Cell Count 3.83 M/mm3 (4.30-5.90); White Blood Cell Count 14.38 K/mm3 (4.00-11.30)
[2022-01-05 04:03] LABS: Anion Gap 4 mmol/L (6-16); Blood Urea Nitrogen 31 mg/dL (8-24); Bun/Creatinine Ratio 47.4 (12.0-20.0); CO2, Blood 27 mmol/L (21-32); Chloride, Blood 108 mmol/L (98-108); Creatinine, Blood 0.65 mg/dL (0.60-1.20); Glomerular Filtration Rate >60 (60-); Glucose, Blood 155 mg/dL (70-99); Potassium, Blood 4.6 mmol/L (3.5-5.5); Sodium, Blood 139 mmol/L (136-145)
--- NOTE | 2022-01-05 06:18 | NUR ---
SHIFT SUMMARY: PATIENT AWAKE AND ALERT. NONVERBAL BUT FOLLOWS COMMANDS AND NODS APPROPRIATELY. VSS. NO PRN MEDS GIVEN TONIGHT FOR HTN. PATIENT FINALLY HAD BM WITH HELP OF LACTULOSE ENEMA. PATIENT'S LUNG SOUNDS CLEAR. HE IS ON ROOM AIR-2L NC
--- NOTE | 2022-01-05 16:59 | NUR ---
Pt. was resting, but responded when I introduced myself. Pt. is nonverbal but seemed to respond by nodding his head. Offered emotional support and provided prayer. Pt. displayed evidence of gratitude.
--- NOTE | 2022-01-05 17:53 | NUR ---
SUMMARY PT IS ALERT. NONVERBAL BUT WILL NOD YES OR NO TO QUESTIONS. L ARM IS MUCH WEAKER THAN THE R. GOT PT TO CHAIR WITH LIFT FOR ABOUT 4 HRS TODAY. PT NEEDS FREQUENT PO CARE DUE TO BREATHING THROUGH HIS MOUTH AND VERY DRY. RECTAL TUBE WAS REMOVED THIS AM DUE TO PT HAVING SOFT STOOL AROUND THE TUBE. FAILED SPEECH EVAL TODAY. DIRECTOR FOOD AND BEVERAGE WAS CONSULTED AND CPN WILL BE STARTED WHEN PICC LINE IS PLACED. PICC IS IN PROCESS OF BEING PLACED AT THIS MOMENT. NO ACUTE CHANGES TODAY. DOWNGRADED TO PCU STATUS AND WILL BE MOVED TO PCU 10 AFTER PICC PLACEMENT.
--- NOTE | 2022-01-05 19:17 | NUR ---
Pt transferred to PCU from ICU at 1900. When placed on monitor pt was sating in low 80s on 6L, bumped up to 10L and still sating mid 80s. RT called and place pt on highflow nasal canula. Pt eyes open and nodding, but nonverbal.
[2022-01-06 04:54] LABS: Triglycerides 83 mg/dL (30-160)
--- NOTE | 2022-01-06 06:15 | NUR ---
SHIFT SUMMARY PATIENT TRANSFERRED TO FLOOR FROM ICU SHORTLY BEFORE SHIFT CHANGE AND ISHAN RN WAS STRUGGLING TO GET SATS UP UPON ARRIVAL. WAS ON 3L FOR TRANSFER AND FOUND TO BE SATING LOW 70'S. TACHYPENIC IN THE 20'S. UNABLE TO GET SATURATION UP WITH NC SO RT PLACED ON CPAP AFTER MD UPDATED AND ORDERED. CHEST XRAY ALSO DONE AT BEDSIDE AND PENDING. TOLERATED CPAP WITH 14L BLEED IN AND WORE THIS MAJORITY OF THE NIGHT. Q2H ORAL PERFORMED. WEAK, WET COUGH NOTED. COARSE CRACKLES HEARD AND RT STATED THEY MAT START MUCOMYST ON HIM TODAY. IS ABLE TO NOD YES AND NO TO QUESTIONS BUT UNABLE TO ASSESS ORIENTATION. FOLLOWS SOME COMMANDS WHEN ABLE. GEN WEAKNESS WITH RIGHT SIDE STRONGER THEN LEFT. SHAKES HEAD NO WHEN ASKED IF IN PAIN. NSR IN THE 70'S. BP ELEVATED AT TIMES AND PRN LABETOLOL X1 GIVEN WITH GOOD RELIEF. STRICT NPO. TPN INFUSING PER ORDER THROUGH PICC. CONDOM CATH IN PLACE DRAINING TO GRAIVTY WITH GOOD OUTPUT. Q2H TURNS TO PREVENT FURTHER PRESSURE INJURIES. NO ACUTE CONCERSN AT THIS TIME. WILL CONTINUE PLAN OF CARE UNTIL REPORT GIVEN TO ISHAN RN.
--- NOTE | 2022-01-06 11:34 | NUR ---
Spiritual Care Visit. Pt. was intubated and nonverbal, but otherwise alert and responded to simple questions by nodding his head. Pt. displayed evidence of increased awareness of his surroundings, though (through nodding) did not seem to remember my earlier visits. With permission I prayed for pt. Pt. displayed evidence of wanting to communicate more, but was unable to do so.
--- NOTE | 2022-01-06 13:56 | NUR ---
Spoke with Dr Cleaning and discussed case. Dr Cleaning spoke with Pt's sister Macrina and discussed goals of care. Decision was made to move forward with comfort care. Spoke with breaker mechanic Denise. Kinza placed comfort care order, comfort care order set per V/O from Dr Cleaning. Pt resting in bed and is non verbal. Pt is able to nod his head to indicate yes and no. Pt appears dyspneic as evidenced by respiratory rate and work of breathing. Moderate secretions noted. Relayed symptoms to breaker mechanic Denise. Pt will be offered comfort medications. Attempted to call Pt's sister and left message with request for a return phone call. Palliative Care will remain available for symptom management and supportive visits.
--- NOTE | 2022-01-06 16:29 | NUR ---
Comfort Care Visit Pt resting in bed with his eyes closed. Pt on non rebreather and appears dyspneic as evidenced by respiratory rate and work of breathing. Primary RN not available at this time. Spoke with edge inker uppers Kinza and reviewed comfort medications. Palliative Care will remain available.
--- NOTE | 2022-01-06 16:47 | NUR ---
Spiritual Care Visit. Pt. is on comfort care and not responsive. Labored breathing. Prayed an end of life blessing over pt. Requested the PCU desk to call me if next of kin arrives.
--- NOTE | 2022-01-06 18:04 | NUR ---
END OF SHIFT SUMMARY: PATIENT THIS AFTERNOON WAS SWITCHED TO COMFORT CARE, WHICH HAS DECREASED HIS RESPIRATIONS FROM THE HIGH 30'S TO LOWER 20'S STILL MEDICATION PER EMAR TO ENSURE PATIENT IS COMFORTABLE AND NOT SUFFERING FROM AIRHUNGER. PATIENT AT THIS TIME IS HAVING INCREASED RESPIRATIONS WILL MEDICATE PER EMAR. FAMILY CONTACTED THEY MAY NOT SHOW UP TOMORROW TO SEE HIM.SECRETIONS WITH THE ATROPINE AND THE SCOPALAMINE ARE HELPING HIS SECRETIONS. DENIES ANY ANXIETY CONTINUING TO REPOSITION AND REACCESS PATIENTS NEEDS HE IS NONVERBAL BUT UNDERSTANDS YES OR NO QUESTIONS BY NODDING.
--- NOTE | 2022-01-06 21:55 | NUR ---
PT PASSED AT 2106. ASSUMED CARE OF PT AT 1914. PT SWITCHED TO COMFORT CARE EARLIER IN THE DAY. AT THIS TIME PT WAS SLEEPING COMFORTABLY. BREATHING AND PULSE PRESENT BUT UNABLE TO COMMUNICATE. LAST MEDICATED FOR PAIN RELIEF/AIR HUNGER AT 1818. FAMILY NOTIFIED
--- NOTE | 2022-01-07 08:30 | NUR ---
Spiritual Care. On-call phone contact. Approx. (19:40-01/06/22) recieved call from [place]town brother of the pt. Brother "though not confucianism" asked if last rites could be given to the pt. Informed caller that I was not a "confucianism" chef concierge but that I had given an end-of-life blessing to the pt. I additionally shared that I had visited the pt. on several occassions throughout his hospitalization. The brother verbalized evidence of relief and gratitude for the action and information. A plan was established to connect with a sister who would visit the following morning (01/07). The pt. passed during the evening 01/06.
== END 2022-01-07 00:05 | DRG 963 ==
LOC: ER 09:47 → ICUW 16:46 → ICUE 16:46 → EDSEX 16:46 → ICUW 17:20 → ICUE 17:23 → PCU 01-05 18:15
PROVIDERS: Emergency Medicine; Family Medicine; Internal Medicine; Internal Medicine Critical Care Medicine; ADMIT Surgery
PROC: 0HQ1XZZ Repair Face Skin, External Approach (ICD-10-PCS; principal; 2021-12-21)
PROC: 0CQ0XZZ Repair Upper Lip, External Approach (ICD-10-PCS; 2021-12-21)
PROC: 5A1955Z Respiratory Ventilation, Greater than 96 Consecutive Hours (ICD-10-PCS; 2021-12-21)
PROC: 3E0234Z Introduction of Serum, Toxoid and Vaccine into Muscle, Percutaneous Approach (ICD-10-PCS; 2021-12-21)
PROC: 0BH17EZ Insertion of Endotracheal Airway into Trachea, Via Natural or Artificial Opening (ICD-10-PCS; 2021-12-21)
PROC: 0BH18EZ Insertion of Endotracheal Airway into Trachea, Via Natural or Artificial Opening Endoscopic (ICD-10-PCS; 2021-12-27)
PROC: 5A1955Z Respiratory Ventilation, Greater than 96 Consecutive Hours (ICD-10-PCS; 2021-12-27)
PROC: 5A09357 Assistance with Respiratory Ventilation, Less than 24 Consecutive Hours, Continuous Positive Airway Pressure (ICD-10-PCS; 2021-12-27)
PROC: 5A09357 Assistance with Respiratory Ventilation, Less than 24 Consecutive Hours, Continuous Positive Airway Pressure (ICD-10-PCS; 2022-01-05)
PROC: 02H633Z Insertion of Infusion Device into Right Atrium, Percutaneous Approach (ICD-10-PCS; 2022-01-07)
DX: S06.6X9A Traumatic subarachnoid hemorrhage with loss of consciousness of unspecified duration, initial encounter (principal); S72.141A Displaced intertrochanteric fracture of right femur, initial encounter for closed fracture; J96.01 Acute respiratory failure with hypoxia; J69.0 Pneumonitis due to inhalation of food and vomit; G93.41 Metabolic encephalopathy; A41.9 Sepsis, unspecified organism; J95.851 Ventilator associated pneumonia; G93.1 Anoxic brain damage, not elsewhere classified; J98.11 Atelectasis; I47.1 Supraventricular tachycardia; Z23 Encounter for immunization; R47.1 Dysarthria and anarthria; Z20.822 Contact with and (suspected) exposure to COVID-19; I16.0 Hypertensive urgency; R13.10 Dysphagia, unspecified; Z66 Do not resuscitate; Z51.5 Encounter for palliative care; Z78.1 Physical restraint status; R40.2132 Coma scale, eyes open, to sound, at arrival to emergency department; R40.2352 Coma scale, best motor response, localizes pain, at arrival to emergency department; R40.2232 Coma scale, best verbal response, inappropriate words, at arrival to emergency department; T17.990A Other foreign object in respiratory tract, part unspecified in causing asphyxiation, initial encounter; S02.2XXA Fracture of nasal bones, initial encounter for closed fracture; S00.83XA Contusion of other part of head, initial encounter; Z59.00 Homelessness unspecified; I67.1 Cerebral aneurysm, nonruptured; S01.81XA Laceration without foreign body of other part of head, initial encounter; E11.65 Type 2 diabetes mellitus with hyperglycemia; Y09 Assault by unspecified means
CPT/HCPCS: 0241U; 12013; 31500; 31720; 36415; 36569; 36600; 51702; 70450; 70486; 70496; 70498; 71045; 72125; 72170; 74176; 80047; 80048; 80053; 80069; 81001; 82550; 82553; 82803; 82947; 83605; 83690; 83735; 84100; 84145; 84439; 84443; 84478; 84484; 85014; 85018; 85025; 85610; 86140; 87040; 87070; 87077; 87106; 87186; 87205; 90471; 90714; 92526; 92610; 93005; 93010; 93306; 94002; 94003; 94640; 94660; 96361-59; 96365-59; 96366-59; 96367-59; 96375-59; 97110; 97162; 99291-25; 99292; A9270; C1751; C9113; G0390; G0480; J0295; J0330; J0360; J0456; J0696; J1650; J1815; J1940; J1953; J2060; J2270; J2405; J2543; J2704; J2920; J2930; J3010; J3370; J7030; J7040; J7042; J7050; J7060; L0160; Q9967